=== PATIENT | male | born 1965 | race Caucasian/White ===

== ENCOUNTER 2020-10-02 20:25 | Inpatient (IN) ==
[2020-10-02 21:04] VITALS: BMI 26.2
--- NOTE | 2020-10-02 22:23 | DR.EXTPAIN ---
HPI Time seen Time Seen by Provider: 10/02/20 22:08 PCP Primary Care Physician: XANDER MADRID HPI Comment HPI Comment: A 54 y/o male presenting here admission work-up as directed by his vascular surgeon against procedure in the morning. He had sustained a Rt. calcaneal fracture on 06/09/2020. This is non-healing with subsequent development of an ulcer. He is a diabetic and had lower extremity angiogram done today. He states that he was called and informed this evening of a clot and the surgeon asked him to come for admission and he would take the clot out tomorrow. Complaint/Symptoms Chief Complaint:: "DR. TABOR SENT ME HERE FOR SURGERY IN THE MORNING WITH DR. BRENNAN." Self Treatment fo Chief Complaint: ANTIBIOTICS- UNSURE OF NAME. COVID-19 Coronavirus risk:travel/contact w/high risk person: No Has patient experienced Coronavirus symptoms: No Nurses notes reviewed Nurses Notes Review: Yes Source History Provided: Patient Mode of arrival Mode of Arrival: Ambulatory Timing Onset of Chief Complaint: 06/01/20 Associated signs and symptoms Associated Signs and Symptoms: Swelling (Rt. foot) PMH PMH Past Medical History: Yes Past Medical History: COPD, Coronary Artery Disease, Diabetes, Dyslipidemia, Gout, Hypertension and [place] Past Surgical History: Yes Past Surgical History Comment: OPEN HEART SURGERY, PACEMAKER AND DEFIB, SEVERAL STENTS, 3 BYPASSES. Family History History of Family Medical Conditions: Yes Family Medical History: Diabetes Mellitus, Cancer and Hypertension Social History Have you used tobacco products in the last 12 months: Yes Type of Tobacco Use: Cigarettes Does any household member use tobacco: Yes Alcohol Use: None Do you use any recreational Drugs:: No Lives With: Alone Lives Where: Home Travel Risk Coronavirus risk:travel/contact w/high risk person: No Has patient experienced Coronavirus symptoms: No Infectious screening Have you traveled outside the country in the last 6 months?: No Isolation: Standard ROS Review of Systems Constitutional: No Symptoms Reported Eyes: No Symptoms Reported ENTM: No Symptoms Reported Respiratoy: No Symptoms Reported Cardiovascular: No Symptoms Reported Gastrointestinal/Abdominal: No Symptoms Reported Neurological: No Symptoms Reported Musculoskeletal: Foot (Rt. foot pain) Integumentary: Other (Ulcer of Rt. heel) Hematologic/Lymphatic: No Symptoms Reported Endocrine: [place] Psychiatric: No Symptoms Reported PE Vital Signs Vitals: Temperature 98.2 F Pulse Rate 75 Respiratory Rate 20 Blood Pressure 141/61 O2 Sat by Pulse Oximetry 95 General Limitations: No Limitations General Appearance: Alert and In No Apparent Distress Head Head Exam: Normal Inspection, Atraumatic and Normocephalic Eyes Eye exam: Normal Appearance and EOMI ENT ENT Exam: Normal Exam, Normal Oropharynx, Normal External Ear Exam and Mucous Membranes Moist Neck Neck Exam: Normal Inspection and Full ROM Chest Chest Inspection: Normal Inspection and Symmetric Chest Wall Rise Respiratory Respiratory Exam: Normal Lung Sounds Bilat Cardiovascular Cardiovascular Exam: Regular Rate, Normal Rhythm, Normal Heart Sounds, +S1 and +S2 Abdominal Exam Abdominal Exam: Normal Inspection, Normal Bowel Sounds and Soft Lower Extremities Knee Exam: Normal Inspection and Full ROM Lower Leg Exam: Normal Inspection and Full ROM; negative Tenderness, Swelling, Abrasion, Laceration, Deformity, Ecchymosis, Crepitus, Dislocation, Erythema, Palpable Cord, Homans' Sign and Achilles Tendon Intact Ankle Exam: Normal Inspection and Full ROM; negative Tenderness, Swelling, Abrasion, Laceration, Ecchymosis, Deformity, Crepitus, Dislocation, Erythema, Tenderness over talofibular lig and Anterior Draw Sign Foot/Toe Exam: Swelling (Rt. foot) and Other (Ulcer to medial aspect of Rt. heel) Gait Exam: Other (ambulating with a pair of cane) Back Back Exam: Normal Inspection and Full ROM Neurological Neurological Exam: Alert and Oriented X3 Psychiatric Psychiatric Exam: Normal Mood Skin Skin Exam: Dry and Normal Color COURSE Reevaluation 1st: Unchanged Consultation Consultation Comments: I was able to speak with Dr. Brennan at about 2325 hrs. [facility]. He said that he didn't instruct the pt. to come to the ED or with plans to take him to the OR tomorrow. He said he had spoken with providers at [facility] about the angiogram report and that he would be happy to see the pt. He had tried to contact the patient unsuccessfully since earlier in the day. Anyway, Dr. Brennan asked me to admit the pt. to his service and that he would come in [facility] to see the pt. Education/Counseling Education/Counseling: Patient, Education and Counseling Educated On: Treatment, Diagnosis, Prognosis and Needs for Follow Up ROR Labs Reviewed Laboratory Results Reviewed?: Yes Result Diagrams: 10/02/20 22:25 10/02/20 22:25 Laboratory: WBC 13.3 X10^3/uL (3.6-10.0) H 10/02/20 22:25 RBC 5.51 X10^6/uL (4.7-6.0) 10/02/20 22:25 Hgb 16.4 g/dL (13.5-18.0) 10/02/20 22: Hct 48.5 % (42.0-54.0) 10/02/20 22: MCV 87.9 fL (80.0-100.0) 10/02/20 22: MCH 29.7 pg (27.0-34.0) 10/02/20 22: MCHC 33.8 g/dL (33.0-35.0) 10/02/20 22: RDW 15.1 % (11.6-16.5) 10/02/20: Plt Count 323 X10^3/uL (150.0-450.0) 10/02/20: MPV 8.2 fL (7.4-11.0) 10/02/20 22:25 Neut % (Auto) 65.3 % (42.0-75.0) 10/02/20 22: Lymph % (Auto) 23.2 % (21.0-51.0) 10/02/20 22: [place] % (Auto) 8.9 % (0.0-13.0) 10/02/20 22: Eos % (Auto) 1.8 % (0.9-2.9) 10/02/20: Baso % (Auto) 0.8 % (0.2-1.0) 10/02/20 22: Neut # (Auto) 8.7 x10^3/uL (2.2-4.8) H 10/02/20 22:25 Lymph # (Auto) 3.1 X10^3/uL (1.3-2.9) H 10/02/20 22:25 [place] # (Auto) 1.2 x10^3/uL (0.3-0.8) H 10/02/20 22:25 Eos # (Auto) 0.2 x10^3/uL (0.0-0.2) 10/02/20 22:25 Baso # (Auto) 0.1 X10^3/uL (0.0-0.1) 10/02/20 22:25 Absolute Nucleated RBC 0.2 /100WBC 10/02/20 22:25 Sodium 139 mmol/L (136-145) 10/02/20 22:25 Corrected Sodium 141 mmol/L (136-145) 10/02/20 22:25 Potassium 4.3 mmol/L (3.5-5.1) 10/02/20 22:25 Chloride 99 mmol/L (98-107) 10/02/20 22:25 Carbon Dioxide 29.9 mmol/L (21-32) 10/02/20 22:25 BUN 13 mg/dL (7-18) 10/02/20 22:25 Creatinine 1.11 mg/dL (0.70-1.30) 10/02/20 22:25 Est GFR (MDRD) Af Amer > 60 (>60) 10/02/20 22:25 Est GFR (MDRD) Non-Af > 60 (>60) 10/02/20 22:25 Glucose 176 mg/dL (65-99) H 10/02/20 22:25 Calcium 9.2 mg/dL (8.5-10.1) 10/02/20 22:25 Corrected Calcium TNP 10/02/20 22:25 Total Bilirubin 0.30 mg/dL (0.2-1.0) 10/02/20 22:25 AST 18 Units/L (15-37) 10/02/20 22:25 ALT 35 Units/L (12-78) 10/02/20 22:25 Alkaline Phosphatase 141 Units/L (46-116) H 10/02/20 22:25 Total Protein 7.5 g/dL (6.4-8.2) 10/02/20 22:25 Albumin 3.9 g/dL (3.4-5.0) 10/02/20 22:25 Globulin 3.6 g/dL (2.5-4.5) 10/02/20 22:25 Albumin/Globulin Ratio 1.1 Ratio (1.1-2.1) 10/02/20 22:25 SARS CoV-2 RNA Rapid NATALIE Negative (NEGATIVE) 10/02/20 22:19 XRAY XRAY Interpreted by: Self X-ray Results: CXR: No cardiomegaly. sternostomy wires noted, as well as a pacer below the Lt. distal clavicle with single lead into the RV. EKG Rate: 62 [place]: Normal Rhythm: NSR Block: None Hypertrophy: None ST: Normal Opioid Opioid Risk Tool Age (Scott box if 16-45): No Total: 0 Total Score Risk Category: Low Risk Copyright: [facility] predicting aberrant behaviors Diagnosis Discharge Problem: Superficial femoral artery occlusion Foot ulcer, right Qualifiers: Non-pressure ulcer stage: with fat layer exposed Qualified Code(s): L97.512 - Non-pressure chronic ulcer of other part of right foot with fat layer exposed Uncontrolled diabetes mellitus Qualifiers: Diabetes mellitus type: type 2 Glycemic state: with hyperglycemia Qualified Code(s): E11.65 - Type 2 diabetes mellitus with hyperglycemia CAD (coronary artery disease) Qualifiers: Coronary Disease-Associated Artery/Lesion type: [place] artery [place] vs. transplanted heart: [place] heart Associated angina: without angina Qualified Code(s): I25.10 - Atherosclerotic heart disease of [place] coronary artery without angina pectoris Calcaneus fracture, right Qualifiers: Encounter type: initial encounter Calcaneus location: unspecified portion of calcaneus Fracture type: closed Fracture alignment: nondisplaced Qualified Code(s): S92.001A - Unspecified fracture of right calcaneus, initial encounter for closed fracture
[2020-10-02 22:39] LABS: BASOPHILS # (AUTO) 0.1 X10^3/uL (0.0-0.1); BASOPHILS % (AUTO) 0.8 % (0.2-1.0); EOSINOPHILS # (AUTO) 0.2 x10^3/uL (0.0-0.2); EOSINOPHILS % (AUTO) 1.8 % (0.9-2.9); HEMATOCRIT 48.5 % (42.0-54.0); HEMOGLOBIN 16.4 g/dL (13.5-18.0); LYMPHOCYTES # (AUTO) 3.1 X10^3/uL (1.3-2.9); LYMPHOCYTES % (AUTO) 23.2 % (21.0-51.0); MEAN CORPUSCULAR HEMOGLOBIN 29.7 pg (27.0-34.0); MEAN CORPUSCULAR HGB CONC 33.8 g/dL (33.0-35.0); MEAN CORPUSCULAR VOLUME 87.9 fL (80.0-100.0); MEAN PLATELET VOLUME 8.2 fL (7.4-11.0); MONOCYTES # (AUTO) 1.2 x10^3/uL (0.3-0.8); MONOCYTES % (AUTO) 8.9 % (0.0-13.0); NEUTROPHILS # (AUTO) 8.7 x10^3/uL (2.2-4.8); NEUTROPHILS % (AUTO) 65.3 % (42.0-75.0); PLATELET COUNT 323 X10^3/uL (150.0-450.0); RED BLOOD COUNT 5.51 X10^6/uL (4.7-6.0); RED CELL DISTRIBUTION WIDTH 15.1 % (11.6-16.5); WHITE BLOOD COUNT 13.3 X10^3/uL (3.6-10.0)
[2020-10-02 22:45] LABS: ALANINE AMINOTRANSFERASE 35 Units/L (12-78); ALBUMIN 3.9 g/dL (3.4-5.0); ALKALINE PHOSPHATASE 141 Units/L (46-116); ASPARTATE AMINO TRANSFERASE 18 Units/L (15-37); BLOOD UREA NITROGEN 13 mg/dL (7-18); CALCIUM 9.2 mg/dL (8.5-10.1); CARBON DIOXIDE 29.9 mmol/L (21-32); CHLORIDE 99 mmol/L (98-107); COR NA(FOR HYPERGLY) 141 mmol/L (136-145); CREATININE 1.11 mg/dL (0.70-1.30); SODIUM 139 mmol/L (136-145); TOTAL PROTEIN 7.5 g/dL (6.4-8.2); eGFR NON BLACK RACES > 60 (>60)
[2020-10-02] MEDS ORDERED: NORCO 10/325 TAB PO ONE (23:19)
[2020-10-02] MEDS ORDERED: ZOSYN VIAL 3.375 GRAMS 3.375 G in NS 100 ML IV + SPIKE MINIBAG* 100 ML IV ONE (23:37)
[2020-10-02] MEDS ORDERED: ZOSYN VIAL 3.375 GRAMS IV ONE (23:44)
[2020-10-02] MEDS ORDERED: NS 1000 ML 1,000 ML ONE (23:44)
[2020-10-02] MEDS ORDERED: NORCO 10/325 TAB ONE (23:44)
[2020-10-02] MEDS ORDERED: NS 100 ML IV + SPIKE MINIBAG* 100 ML IV ONE (23:45)
[2020-10-02] MEDS: NS 1000 ML 1,000 ML IV SCH (23:54)
--- NOTE | 2020-10-02 23:54 | RAD ---
HISTORYPT WAS SENT TO THE ER FOR A PREOP CXR(FOOT SX)STUDYCHEST, 1 VIEWCOMPARISONNone availableTECHNIQUEChest radiographic imaging, frontal projection, 1 imageFINDINGSMild cardiomegaly.Implanted ICD device in place.Status post median sternotomy.No focal airspace disease.No pleural effusion.No pneumothorax.No acute osseous abnormality.IMPRESSIONNo imaging findings of acute cardiopulmonary disease.Electronically signed by: Xavi Velez (Oct 02, 2020 23:45:36)
[2020-10-03] MEDS ORDERED: ZOFRAN INJ 4 MG VIAL IVP PRN (00:47)
[2020-10-03] MEDS ORDERED: SANTYL ONE (00:49)
--- NOTE | 2020-10-03 01:00 | DR.H&P ---
H&P History & Physical for Day of: H&P Date: 10/03/20 Chief Complaint Chief Complaint: Non healing wound to the medial right ankle/ calcaneus. Allergies Allergies Allergy/AdvReac Type Severity Reaction Status Date / Time No Known Drug Allergies Allergy Verified 10/02/20 22:22 History of Present Illness History of Present Illness: This 54-year-old male was evaluated by his hardware technician earlier this week. He has a nonhealing wound to the medial aspect of the right ankle over the calcaneus with a known calcaneal fracture. This occurred from trauma. Recently had CT angiogram showing complete occlusion of the distal right superficial femoral artery/popliteal artery with good run off. He was to call me back today so we can decide how best to treat this but has shown up in the emergency room with this open wound with significant exudates and questionable infection. He also has a history of coronary artery disease with Hx of CABG, many coronary stents placed and has a pacemaker defibrillator in place. He will be admitted for cardiac clearance for intervention of the right leg and IV antibiotics. Past Medical History Past Medical History: COPD (> 80 packyear smoker), Coronary Artery Disease (Hx of CABG 17 years ago, multiple coronary stents, has pacemaker/defibrillator), Diabetes, Dyslipidemia, Gout, Hypertension and [place] Past Surgical History Surgical History: Angioplasty/Stents (Multiple coronary stents) and CABG/Valve Surgery (Hx of CABG 17years ago) Family History Family Medical History: Diabetes Mellitus, Cancer and Hypertension Social History Does patient currently use any type of tobacco product: Yes (> 80 pack year smoker ) Have you used tobacco products in the last 12 months: Yes Type of Tobacco Use: Cigarettes Does any household member use tobacco: Yes Alcohol Use: None Prescription drug monitoring program results: PDMP was not reviewed Medications Home Medications: No Known Drug Allergies Allergy (Verified 10/02/20 22:22) CONTINUE taking the following medications amlodipine 10 mg PO DAILY 10/02/20 [History] atorvastatin 80 mg PO DAILY 10/02/20 [History] ciprofloxacin HCl 500 mg PO BID 10/02/20 [History] clopidogrel 75 mg PO DAILY 10/02/20 [History] collagenase clostridium histo. [Santyl] 1 applic TOPICAL DAILY 10/02/20 [History] ezetimibe 10 mg PO DAILY 10/02/20 [History] vvyoadsicab-hmbjtwdnc-xssijfvl [Trelegy Ellipta] 1 inh INHALATION DAILY 10/02/20 [History] gabapentin 300 mg PO BID 10/02/20 [History] lisinopril 40 mg PO DAILY 10/02/20 [History] metformin 1,000 mg PO QHS 10/02/20 [History] metformin 500 mg PO QAM 10/02/20 [History] metoprolol succinate 100 mg PO DAILY 10/02/20 [History] semaglutide [Rybelsus] 7 mg PO DAILY 10/02/20 [History] Labs Result Diagrams: 10/02/20 22:25 10/02/20 22:25 Labs: 10/03/20 00:09 Foot - Right Wound Gram Stain - Final Laboratory WBC 13.3 X10^3/uL (3.6-10.0) H 10/02/20 22:25 RBC 5.51 X10^6/uL (4.7-6.0) 10/02/20 22:25 Hgb 16.4 g/dL (13.5-18.0) 10/02/20 22:25 Hct 48.5 % (42.0-54.0) 10/02/20 22:25 MCV 87.9 fL (80.0-100.0) 10/02/20 22:25 MCH 29.7 pg (27.0-34.0) 10/02/20 22:25 MCHC 33.8 g/dL (33.0-35.0) 10/02/20 22:25 RDW 15.1 % (11.6-16.5) 10/02/20 22:25 Plt Count 323 X10^3/uL (150.0-450.0) 10/02/20 22:25 MPV 8.2 fL (7.4-11.0) 10/02/20 22:25 Neut % (Auto) 65.3 % (42.0-75.0) 10/02/20 22:25 Lymph % (Auto) 23.2 % (21.0-51.0) 10/02/20 22:25 [place] % (Auto) 8.9 % (0.0-13.0) 10/02/20 22:25 Eos % (Auto) 1.8 % (0.9-2.9) 10/02/20 22:25 Baso % (Auto) 0.8 % (0.2-1.0) 10/02/20 22:25 Neut # (Auto) 8.7 x10^3/uL (2.2-4.8) H 10/02/20 22:25 Lymph # (Auto) 3.1 X10^3/uL (1.3-2.9) H 10/02/20 22:25 [place] # (Auto) 1.2 x10^3/uL (0.3-0.8) H 10/02/20 22:25 Eos # (Auto) 0.2 x10^3/uL (0.0-0.2) 10/02/20 22:25 Baso # (Auto) 0.1 X10^3/uL (0.0-0.1) 10/02/20 22:25 Absolute Nucleated RBC 0.2 /100WBC 10/02/20 22:25 Sodium 139 mmol/L (136-145) 10/02/20 22:25 Corrected Sodium 141 mmol/L (136-145) 10/02/20 22:25 Potassium 4.3 mmol/L (3.5-5.1) 10/02/20 22:25 Chloride 99 mmol/L (98-107) 10/02/20 22:25 Carbon Dioxide 29.9 mmol/L (21-32) 10/02/20 22:25 BUN 13 mg/dL (7-18) 10/02/20 22:25 Creatinine 1.11 mg/dL (0.70-1.30) 10/02/20 22:25 Est GFR (MDRD) Af Amer > 60 (>60) 10/02/20 22:25 Est GFR (MDRD) Non-Af > 60 (>60) 10/02/20 22:25 Glucose 176 mg/dL (65-99) H 10/02/20 22:25 Calcium 9.2 mg/dL (8.5-10.1) 10/02/20 22:25 Corrected Calcium TNP 10/02/20 22:25 Total Bilirubin 0.30 mg/dL (0.2-1.0) 10/02/20 22:25 AST 18 Units/L (15-37) 10/02/20 22:25 ALT 35 Units/L (12-78) 10/02/20 22:25 Alkaline Phosphatase 141 Units/L (46-116) H 10/02/20 22:25 Total Protein 7.5 g/dL (6.4-8.2) 10/02/20 22:25 Albumin 3.9 g/dL (3.4-5.0) 10/02/20 22:25 Globulin 3.6 g/dL (2.5-4.5) 10/02/20 22:25 Albumin/Globulin Ratio 1.1 Ratio (1.1-2.1) 10/02/20 22:25 SARS CoV-2 RNA Rapid NATALIE Negative (NEGATIVE) 10/02/20 22:19 Review of Systems Constitutional: denies No Symptoms Reported, See HPI, Fever, Chills, Sweats, Weakness, Malaise and Other Eyes: No Symptoms Reported ENT: No Symptoms Reported Respiratory: No Symptoms Reported and SOB with Excertion Gastrointestinal: No Symptoms Reported Genitourinary: No Symptoms Reported Musculoskeletal: Other (Wound medial right ankle 6x4x1.5 cm) Neurological: No Symptoms Reported Physical Exam Vital Signs: Temperature 98.2 F Pulse Rate [Right Brachial] 60 Pulse Rate 75 Respiratory Rate 20 Blood Pressure [Right Arm] 133/64 Blood Pressure 141/61 O2 Sat by Pulse Oximetry 95 Oriented: Normal, Time, Person and Place Eyes: Normal Ear: Normal Nose: Normal Throat: Normal Respiratory: Diminished Throughout Cardiovascular: Normal and Other (Femoral pulses have bilaterally. Absent pulses right ankle. Palpable pulses left ankle.) : Normal Auscultation: Bowel Sounds: Normal Palpation: Normal Tenderness: Normal Skin: Wound (as described above) Musculoskeletal: Normal ( with exception of right medial ankle wound) Psychiatric: Anxiety Affect: Anxious Speech Pattern: Clear Assessment/Plan (1) Superficial femoral artery occlusion: Status: Acute Plan: Plan to admit antibiotics and will need cardiac evaluation prior to peripheral vascular intervention of the right leg (2) Foot ulcer, right: Qualifiers: Non-pressure ulcer stage: with fat layer exposed Qualified Code(s): L97.512 - Non-pressure chronic ulcer of other part of right foot with fat layer exposed Status: Acute Plan: as above . Will apply Santyl to the wound daily. (3) Uncontrolled diabetes mellitus: Qualifiers: Diabetes mellitus type: type 2 Glycemic state: with hyperglycemia Qualified Code(s): E11.65 - Type 2 diabetes mellitus with hyperglycemia Status: Acute Plan: Sliding scale insulin (4) CAD (coronary artery disease): Qualifiers: Associated angina: without angina Coronary Disease-Associated Artery/Lesion type: [place] artery [place] vs. transplanted heart: [place] heart Qualified Code(s): I25.10 - Atherosclerotic heart disease of [place] coronary artery without angina pectoris Status: Acute Plan: Will need cardiac evaluation (5) Calcaneus fracture, right: Qualifiers: Calcaneus location: unspecified portion of calcaneus Encounter type: initial encounter Fracture alignment: nondisplaced Fracture type: closed Qualified Code(s): S92.001A - Unspecified fracture of right calcaneus, initial encounter for closed fracture Status: Acute (6) Pacemaker: Status: Acute Review H&P Reviewed: Yes Patient was examined?: Yes
[2020-10-03] MEDS: GLUCOPHAGE XR 24-HR PO SCH ×3 (01:25→20:42)
[2020-10-03] MEDS: ZOSYN VIAL 3.375 GRAMS 3.375 G in NS 100 ML IV + SPIKE MINIBAG* 100 ML IV SCH ×4 (02:08→21:01)
[2020-10-03 05:06] LABS: BASOPHILS # (AUTO) 0.1 X10^3/uL (0.0-0.1); BASOPHILS % (AUTO) 0.7 % (0.2-1.0); EOSINOPHILS # (AUTO) 0.2 x10^3/uL (0.0-0.2); EOSINOPHILS % (AUTO) 1.8 % (0.9-2.9); HEMOGLOBIN 14.8 g/dL (13.5-18.0); LYMPHOCYTES # (AUTO) 3.1 X10^3/uL (1.3-2.9); LYMPHOCYTES % (AUTO) 30.1 % (21.0-51.0); MEAN CORPUSCULAR HEMOGLOBIN 29.9 pg (27.0-34.0); MEAN CORPUSCULAR HGB CONC 34.5 g/dL (33.0-35.0); MEAN CORPUSCULAR VOLUME 86.6 fL (80.0-100.0); MEAN PLATELET VOLUME 8.4 fL (7.4-11.0); NEUTROPHILS # (AUTO) 5.9 x10^3/uL (2.2-4.8); NEUTROPHILS % (AUTO) 57.4 % (42.0-75.0); PLATELET COUNT 270 X10^3/uL (150.0-450.0); RED BLOOD COUNT 4.96 X10^6/uL (4.7-6.0); RED CELL DISTRIBUTION WIDTH 15.2 % (11.6-16.5); WHITE BLOOD COUNT 10.3 X10^3/uL (3.6-10.0)
[2020-10-03 05:18] LABS: ALANINE AMINOTRANSFERASE 30 Units/L (12-78); ALBUMIN 3.4 g/dL (3.4-5.0); ALKALINE PHOSPHATASE 119 Units/L (46-116); ASPARTATE AMINO TRANSFERASE 15 Units/L (15-37); BLOOD UREA NITROGEN 13 mg/dL (7-18); CARBON DIOXIDE 29.8 mmol/L (21-32); CHLORIDE 102 mmol/L (98-107); COR NA(FOR HYPERGLY) 141 mmol/L (136-145); CREATININE 1.07 mg/dL (0.70-1.30); SODIUM 140 mmol/L (136-145); TOTAL PROTEIN 6.4 g/dL (6.4-8.2); eGFR NON BLACK RACES > 60 (>60)
[2020-10-03] MEDS: HumuLIN R SUBCUT PRN (06:08)
[2020-10-03] MEDS: NS 1000 ML 1,000 ML IV SCH ×2 (07:00→17:30)
[2020-10-03] MEDS: NORCO 5/325 MG TAB PO PRN ×3 (07:12→20:43)
[2020-10-03] MEDS: PULMICORT NEB TX 0.5 MG NEB SCH ×2 (08:10→21:11)
[2020-10-03] MEDS: DUONEB 0.5 MG/3 MG (3 mL) NEB SCH ×2 (08:10→21:11)
[2020-10-03] MEDS ORDERED: PATIENT'S HOME MEDICATION (Fluticasone-Umeclidin-Vilanter [Trelegy Ellipta] 100-62.5-25 mc IN SCH (09:00)
[2020-10-03] MEDS ORDERED: TOPROL XL PO ONE (09:57)
[2020-10-03] MEDS: LOVENOX INJ 40 MG SYR SC SCH (10:08)
[2020-10-03] MEDS: TOPROL XL PO SCH (10:08)
[2020-10-03] MEDS: NEURONTIN CAP 300 MG PO SCH ×2 (10:08→21:00)
[2020-10-03] MEDS: PLAVIX PO SCH (10:08)
[2020-10-03] MEDS: NORVASC TAB 10 MG PO SCH (10:08)
[2020-10-03] MEDS: LIPITOR TAB 80 MG PO SCH (10:09)
[2020-10-03] MEDS: ZETIA TAB 10 MG PO SCH (10:09)
[2020-10-03] MEDS: SANTYL TOP SCH (10:09)
[2020-10-03] MEDS: ZESTRIL TAB 40 MG PO SCH (10:11)
--- NOTE | 2020-10-03 13:24 | NOTE.SOAP ---
Soap Note Note for Day of Date of Exam: 10/03/20 Subjective Data Subjective Data: Patient with non healing wound and limb threatening ischemia right LE with complete total occlusion of the right superficial femoral artery with 3 vessel runoff. Significant heart history with CABG X3 WITH MULTIPLE CORONARY STENTS, AND PACEMAKER defibrillator . 2 pack/ day smoker, > 80 pack years and diabetic Objective Data Temperature: 97.8 F Pulse Rate: 64 Respiratory Rate: 18 Blood Pressure: 134/80 O2 Sat by Pulse Oximetry: 93 Objective Data: 5x4x15 cm wound right medial ankle with significant exudate Assessment Assessment: Limb threatening ischemia right LE with non healing wound Plan Plan: Will need to continue IV antibiotics and will need cardiology consult in preparation for intervention of complete occlusion right SFA
[2020-10-03] MEDS: SNACK - Diabetic Appropriate PO SCH (20:07)
--- NOTE | 2020-10-03 23:53 | NOTE.SOAP ---
Soap Note Note for Day of Date of Exam: 10/03/20 Subjective Data Subjective Data: See previous note. Patient had stress echo cardiocardiogram today but result in the. He has failed to separate rounds of antibiotics and has had no progress in healing of the right ankle wound. Objective Data Temperature: 56 F O2 Sat by Pulse Oximetry: 92 Assessment Assessment: Nonhealing wound right ankle despite 2 rounds of antibiotics. Limb threatening ischemia right lower extremity. Plan Plan: Continue IV antibiotics. Await final results of stress echocardiogram and cardiology consult. Will plan for intervention early next week of the right lower extremity.
[2020-10-04] MEDS: NORCO 5/325 MG TAB PO PRN ×3 (02:09→16:49)
[2020-10-04] MEDS: NS 1000 ML 1,000 ML IV SCH ×4 (02:09→20:45)
[2020-10-04] MEDS: ZOSYN VIAL 3.375 GRAMS 3.375 G in NS 100 ML IV + SPIKE MINIBAG* 100 ML IV SCH ×3 (05:09→22:16)
[2020-10-04] MEDS ORDERED: TOPROL XL PO ONE (07:32)
[2020-10-04] MEDS: GLUCOPHAGE XR 24-HR PO SCH ×2 (08:02→20:46)
[2020-10-04] MEDS: LIPITOR TAB 80 MG PO SCH (08:03)
[2020-10-04] MEDS: LOVENOX INJ 40 MG SYR SC SCH (08:06)
[2020-10-04] MEDS: NICOTINE PATCH TD SCH ×2 (08:07→14:47)
[2020-10-04] MEDS: NEURONTIN CAP 300 MG PO SCH ×2 (08:07→20:46)
[2020-10-04] MEDS: PLAVIX PO SCH (08:08)
[2020-10-04] MEDS: NORVASC TAB 10 MG PO SCH (08:08)
[2020-10-04] MEDS: SANTYL TOP SCH (08:09)
[2020-10-04] MEDS: ZETIA TAB 10 MG PO SCH (08:11)
[2020-10-04] MEDS: ZESTRIL TAB 40 MG PO SCH (08:11)
[2020-10-04] MEDS: TOPROL XL PO SCH (08:11)
[2020-10-04] MEDS: PULMICORT NEB TX 0.5 MG NEB SCH ×2 (08:29→20:30)
[2020-10-04] MEDS: DUONEB 0.5 MG/3 MG (3 mL) NEB SCH ×2 (08:29→20:30)
--- NOTE | 2020-10-04 15:34 | DR.PROGNOT ---
Hospital Progress Notes - Progress Note for Day of: Progress Note Date: 10/04/20 - Chief Complaint Chief Complaint: c/o pain Rt foot . being treated for infected ulcer Rt ankle and possible surgery next week . - Past Medical Family Social History Past Med/Fam/Surg Hx: No changes since H&P Allergies: Allergies No Known Drug Allergies Allergy (Verified 10/02/20 22:22) - Review Of Systems ROS: No change since H&P - Vital Signs Vital Signs: Temperature 97.9 F Pulse Rate [Right Brachial] 66 Pulse Rate 76 Respiratory Rate 20 Blood Pressure [Right Arm] 138/62 Blood Pressure 134/80 O2 Sat by Pulse Oximetry 96 - Physical Exam Oriented: Normal, Time, Person, Place Eyes: Normal Ear: Normal Nose: Normal Throat: Normal Cardiovascular: Normal, Other (Femoral pulses have bilaterally. Absent pulses right ankle. Palpable pulses left ankle.) : Normal GI:Auscultation: Normal GI:Palpation: Normal GI: Tenderness: Normal Skin: Wound (infected ulcer Rt ankle ) Musculoskeletal: Normal (with exception of right medial ankle wound) Psychiatric: Anxiety Affect: Anxious Speech Pattern: Clear, Appropriate - Laboratory and Diagnostics Result Diagrams: 10/03/20 04:03 10/03/20 04:03 Labs: 10/03/20 00:09 Foot - Right Wound Gram Stain - Final 10/03/20 00:09 Foot - Right Wound Culture - Preliminary Laboratory WBC 10.3 X10^3/uL (3.6-10.0) H 10/03/20 04:03 RBC 4.96 X10^6/uL (4.7-6.0) 10/03/20 04:03 Hgb 14.8 g/dL (13.5-18.0) 10/03/20 04:03 Hct 43.0 % (42.0-54.0) 10/03/20 04:03 MCV 86.6 fL (80.0-100.0) 10/03/20 04:03 MCH 29.9 pg (27.0-34.0) 10/03/20 04:03 MCHC 34.5 g/dL (33.0-35.0) 10/03/20 04:03 RDW 15.2 % (11.6-16.5) 10/03/20 04:03 Plt Count 270 X10^3/uL (150.0-450.0) 10/03/20 04:03 MPV 8.4 fL (7.4-11.0) 10/03/20 04:03 Neut % (Auto) 57.4 % (42.0-75.0) 10/03/20 04:03 Lymph % (Auto) 30.1 % (21.0-51.0) 10/03/20 04:03 [place] % (Auto) 10.0 % (0.0-13.0) 10/03/20 04:03 Eos % (Auto) 1.8 % (0.9-2.9) 10/03/20 04:03 Baso % (Auto) 0.7 % (0.2-1.0) 10/03/20 04:03 Neut # (Auto) 5.9 x10^3/uL (2.2-4.8) H 10/03/20 04:03 Lymph # (Auto) 3.1 X10^3/uL (1.3-2.9) H 10/03/20 04:03 [place] # (Auto) 1.0 x10^3/uL (0.3-0.8) H 10/03/20 04:03 Eos # (Auto) 0.2 x10^3/uL (0.0-0.2) 10/03/20 04:03 Baso # (Auto) 0.1 X10^3/uL (0.0-0.1) 10/03/20 04:03 Absolute Nucleated RBC 0.0 /100WBC 10/03/20 04:03 Sodium 140 mmol/L (136-145) 10/03/20 04:03 Corrected Sodium 141 mmol/L (136-145) 10/03/20 04:03 Potassium 4.3 mmol/L (3.5-5.1) 10/03/20 04:03 Chloride 102 mmol/L (98-107) 10/03/20 04:03 Carbon Dioxide 29.8 mmol/L (21-32) 10/03/20 04:03 BUN 13 mg/dL (7-18) 10/03/20 04:03 Creatinine 1.07 mg/dL (0.70-1.30) 10/03/20 04:03 Est GFR (MDRD) Af Amer > 60 (>60) 10/03/20 04:03 Est GFR (MDRD) Non-Af > 60 (>60) 10/03/20 04:03 Glucose 155 mg/dL (65-99) H 10/03/20 04:03 POC Glucose (mg/dL) 175 mg/dL (65-99) H 10/04/20 11:30 Calcium 9.0 mg/dL (8.5-10.1) 10/03/20 04:03 Corrected Calcium TNP 10/03/20 04:03 Total Bilirubin 0.20 mg/dL (0.2-1.0) 10/03/20 04:03 AST 15 Units/L (15-37) 10/03/20 04:03 ALT 30 Units/L (12-78) 10/03/20 04:03 Alkaline Phosphatase 119 Units/L (46-116) H 10/03/20 04:03 Total Protein 6.4 g/dL (6.4-8.2) 10/03/20 04:03 Albumin 3.4 g/dL (3.4-5.0) 10/03/20 04:03 Globulin 3.0 g/dL (2.5-4.5) 10/03/20 04:03 Albumin/Globulin Ratio 1.1 Ratio (1.1-2.1) 10/03/20 04:03 SARS CoV-2 RNA Rapid NATALIE Negative (NEGATIVE) 10/02/20 22:19 - Assessment and Plan 1: infected ulcer Rt foot . PVD . heavy smoker . same IV ATB and surgery next week as per Dr Koch - Problem Patient Problems: Patient Problems Superficial femoral artery occlusion (Acute) I70.209 Foot ulcer, right (Acute) L97.519 Uncontrolled diabetes mellitus (Acute) E11.65 CAD (coronary artery disease) (Acute) I25.10 Calcaneus fracture, right (Acute) S92.001A
[2020-10-04] MEDS: SNACK - Diabetic Appropriate PO SCH (20:46)
[2020-10-04] MEDS: HumuLIN R SUBCUT PRN (22:16)
[2020-10-05] MEDS: NORCO 5/325 MG TAB PO PRN ×4 (00:01→23:16)
[2020-10-05] MEDS: NS 1000 ML 1,000 ML IV SCH ×5 (03:18→23:16)
[2020-10-05 05:28] LABS: BASOPHILS # (AUTO) 0.1 X10^3/uL (0.0-0.1); BASOPHILS % (AUTO) 0.8 % (0.2-1.0); EOSINOPHILS # (AUTO) 0.2 x10^3/uL (0.0-0.2); EOSINOPHILS % (AUTO) 1.6 % (0.9-2.9); HEMATOCRIT 41.1 % (42.0-54.0); HEMOGLOBIN 14.3 g/dL (13.5-18.0); LYMPHOCYTES # (AUTO) 2.4 X10^3/uL (1.3-2.9); LYMPHOCYTES % (AUTO) 24.1 % (21.0-51.0); MEAN CORPUSCULAR HEMOGLOBIN 30.2 pg (27.0-34.0); MEAN CORPUSCULAR HGB CONC 34.8 g/dL (33.0-35.0); MEAN PLATELET VOLUME 8.5 fL (7.4-11.0); MONOCYTES % (AUTO) 9.7 % (0.0-13.0); NEUTROPHILS # (AUTO) 6.5 x10^3/uL (2.2-4.8); NEUTROPHILS % (AUTO) 63.8 % (42.0-75.0); PLATELET COUNT 233 X10^3/uL (150.0-450.0); RED BLOOD COUNT 4.72 X10^6/uL (4.7-6.0); WHITE BLOOD COUNT 10.1 X10^3/uL (3.6-10.0)
[2020-10-05 05:50] LABS: BLOOD UREA NITROGEN 5 mg/dL (7-18); CHLORIDE 105 mmol/L (98-107); CREATININE 1.07 mg/dL (0.70-1.30); SODIUM 141 mmol/L (136-145); eGFR NON BLACK RACES > 60 (>60)
[2020-10-05 05:51] LABS: ALANINE AMINOTRANSFERASE 23 Units/L (12-78); ALBUMIN 3.1 g/dL (3.4-5.0); ALKALINE PHOSPHATASE 112 Units/L (46-116); ASPARTATE AMINO TRANSFERASE 19 Units/L (15-37); CALCIUM 8.2 mg/dL (8.5-10.1); COR CA(FOR HYPOALB) 8.9 mg/dL (8.5-10.1); COR NA(FOR HYPERGLY) 141 mmol/L (136-145); TOTAL PROTEIN 6.1 g/dL (6.4-8.2)
[2020-10-05] MEDS: ZOSYN VIAL 3.375 GRAMS 3.375 G in NS 100 ML IV + SPIKE MINIBAG* 100 ML IV SCH ×3 (05:55→21:02)
[2020-10-05] MEDS ORDERED: TOPROL XL PO ONE (08:10)
[2020-10-05] MEDS: GLUCOPHAGE XR 24-HR PO SCH ×2 (08:19→20:56)
[2020-10-05] MEDS: TOPROL XL PO SCH (08:20)
[2020-10-05] MEDS: LIPITOR TAB 80 MG PO SCH (08:20)
[2020-10-05] MEDS: NEURONTIN CAP 300 MG PO SCH ×2 (08:20→20:57)
[2020-10-05] MEDS: ZETIA TAB 10 MG PO SCH (08:20)
[2020-10-05] MEDS: ZESTRIL TAB 40 MG PO SCH (08:20)
[2020-10-05] MEDS: PLAVIX PO SCH (08:20)
[2020-10-05] MEDS: NORVASC TAB 10 MG PO SCH (08:20)
[2020-10-05] MEDS: LOVENOX INJ 40 MG SYR SC SCH (08:21)
[2020-10-05] MEDS: NICOTINE PATCH TD SCH (08:21)
[2020-10-05 09:09] LABS: CREATININE 0.89 mg/dL (0.70-1.30); VANCOMYCIN,TROUGH < 2.0 ug/mL (15-20)
[2020-10-05] MEDS: DUONEB 0.5 MG/3 MG (3 mL) NEB SCH ×2 (09:27→21:05)
[2020-10-05] MEDS: PULMICORT NEB TX 0.5 MG NEB SCH ×2 (09:27→21:05)
--- NOTE | 2020-10-05 10:21 | DR.PROGNOT ---
Hospital Progress Notes - Progress Note for Day of: Progress Note Date: 10/05/20 - Chief Complaint Chief Complaint: c/o pain Rt foot . mild drainage from the RT foot ulcer . BS is fairly controlled . - Past Medical Family Social History Past Med/Fam/Surg Hx: No changes since H&P Allergies: Allergies No Known Drug Allergies Allergy (Verified 10/02/20 22:22) - Review Of Systems ROS: No change since H&P - Vital Signs Vital Signs: Temperature 98 F Pulse Rate [Right Brachial] 73 Pulse Rate 56 Respiratory Rate 18 Blood Pressure [Right Arm] 144/67 Blood Pressure 134/80 O2 Sat by Pulse Oximetry 96 - Physical Exam Oriented: Normal, Time, Person, Place Eyes: Normal Ear: Normal Nose: Normal Throat: Normal Cardiovascular: Normal, Other (Femoral pulses have bilaterally. Absent pulses right ankle. Palpable pulses left ankle.) : Normal GI:Auscultation: Normal GI:Palpation: Normal GI: Tenderness: Normal Skin: Wound (3 x 3 cm Rt foot ulcer medial heel with moderate cellulitis ) Musculoskeletal: Normal (with exception of right medial ankle wound) Psychiatric: Anxiety Affect: Anxious Speech Pattern: Clear, Appropriate - Laboratory and Diagnostics Result Diagrams: 10/05/20 04:15 10/05/20 08:43 Labs: 10/03/20 00:09 Foot - Right Wound Gram Stain - Final 10/03/20 00:09 Foot - Right Wound Culture - Preliminary Escherichia Coli Laboratory WBC 10.1 X10^3/uL (3.6-10.0) H 10/05/20 04:15 RBC 4.72 X10^6/uL (4.7-6.0) 10/05/20 04:15 Hgb 14.3 g/dL (13.5-18.0) 10/05/20 04:15 Hct 41.1 % (42.0-54.0) L 10/05/20 04:15 MCV 87.0 fL (80.0-100.0) 10/05/20 04:15 MCH 30.2 pg (27.0-34.0) 10/05/20 04:15 MCHC 34.8 g/dL (33.0-35.0) 10/05/20 04:15 RDW 15.0 % (11.6-16.5) 10/05/20 04:15 Plt Count 233 X10^3/uL (150.0-450.0) 10/05/20 04:15 MPV 8.5 fL (7.4-11.0) 10/05/20 04:15 Neut % (Auto) 63.8 % (42.0-75.0) 10/05/20 04:15 Lymph % (Auto) 24.1 % (21.0-51.0) 10/05/20 04:15 [place] % (Auto) 9.7 % (0.0-13.0) 10/05/20 04:15 Eos % (Auto) 1.6 % (0.9-2.9) 10/05/20 04:15 Baso % (Auto) 0.8 % (0.2-1.0) 10/05/20 04:15 Neut # (Auto) 6.5 x10^3/uL (2.2-4.8) H 10/05/20 04:15 Lymph # (Auto) 2.4 X10^3/uL (1.3-2.9) 10/05/20 04:15 [place] # (Auto) 1.0 x10^3/uL (0.3-0.8) H 10/05/20 04:15 Eos # (Auto) 0.2 x10^3/uL (0.0-0.2) 10/05/20 04:15 Baso # (Auto) 0.1 X10^3/uL (0.0-0.1) 10/05/20 04:15 Absolute Nucleated RBC 0.1 /100WBC 10/05/20 04:15 Sodium 141 mmol/L (136-145) 10/05/20 04:15 Corrected Sodium 141 mmol/L (136-145) 10/05/20 04:15 Potassium 4.1 mmol/L (3.5-5.1) 10/05/20 04:15 Chloride 105 mmol/L (98-107) 10/05/20 04:15 Carbon Dioxide 27.0 mmol/L (21-32) 10/05/20 04:15 BUN 5 mg/dL (7-18) L 10/05/20 04:15 Creatinine 0.89 mg/dL (0.70-1.30) 10/05/20 08:43 Est GFR (MDRD) Af Amer > 60 (>60) 10/05/20 04:15 Est GFR (MDRD) Non-Af > 60 (>60) 10/05/20 04:15 Glucose 117 mg/dL (65-99) H 10/05/20 04:15 POC Glucose (mg/dL) 251 mg/dL (65-99) H 10/04/20 20:20 Calcium 8.2 mg/dL (8.5-10.1) L 10/05/20 04:15 Corrected Calcium 8.9 mg/dL (8.5-10.1) 10/05/20 04:15 Total Bilirubin 0.30 mg/dL (0.2-1.0) 10/05/20 04:15 AST 19 Units/L (15-37) 10/05/20 04:15 ALT 23 Units/L (12-78) 10/05/20 04:15 Alkaline Phosphatase 112 Units/L (46-116) 10/05/20 04:15 Total Protein 6.1 g/dL (6.4-8.2) L 10/05/20 04:15 Albumin 3.1 g/dL (3.4-5.0) L 10/05/20 04:15 Globulin 3.0 g/dL (2.5-4.5) 10/05/20 04:15 Albumin/Globulin Ratio 1.0 Ratio (1.1-2.1) L 10/05/20 04:15 Vancomycin Trough < 2.0 ug/mL (15-20) L 10/05/20 08:43 SARS CoV-2 RNA Rapid NATALIE Negative (NEGATIVE) 10/02/20 22:19 - Assessment and Plan 1: infected ulcer Rt foot . PVD . DM. heavy smoker . same IV ATB and surgery next week as per Dr Koch - Problem Patient Problems: Patient Problems Superficial femoral artery occlusion (Acute) I70.209 Foot ulcer, right (Acute) L97.519 Uncontrolled diabetes mellitus (Acute) E11.65 CAD (coronary artery disease) (Acute) I25.10 Calcaneus fracture, right (Acute) S92.001A
[2020-10-05] MEDS: SNACK - Diabetic Appropriate PO SCH (20:56)
[2020-10-06] MEDS: ZOSYN VIAL 3.375 GRAMS 3.375 G in NS 100 ML IV + SPIKE MINIBAG* 100 ML IV SCH ×3 (05:44→21:00)
[2020-10-06] MEDS: NORCO 5/325 MG TAB PO PRN ×3 (05:45→20:08)
[2020-10-06] MEDS: NS 1000 ML 1,000 ML IV SCH ×4 (05:45→23:53)
[2020-10-06] MEDS: PULMICORT NEB TX 0.5 MG NEB SCH ×2 (09:04→20:39)
[2020-10-06] MEDS: DUONEB 0.5 MG/3 MG (3 mL) NEB SCH ×2 (09:04→20:39)
[2020-10-06] MEDS ORDERED: TOPROL XL PO ONE (09:20)
[2020-10-06] MEDS: NICOTINE PATCH TD SCH (09:27)
[2020-10-06] MEDS: NEURONTIN CAP 300 MG PO SCH ×2 (09:27→20:07)
[2020-10-06] MEDS: ZESTRIL TAB 40 MG PO SCH (09:28)
[2020-10-06] MEDS: LIPITOR TAB 80 MG PO SCH (09:28)
[2020-10-06] MEDS: GLUCOPHAGE XR 24-HR PO SCH ×2 (09:28→20:07)
[2020-10-06] MEDS: TOPROL XL PO SCH (09:28)
[2020-10-06] MEDS: NORVASC TAB 10 MG PO SCH (09:28)
[2020-10-06] MEDS: PLAVIX PO SCH (09:28)
[2020-10-06] MEDS: LOVENOX INJ 40 MG SYR SC SCH (09:29)
[2020-10-06] MEDS: ZETIA TAB 10 MG PO SCH (09:48)
[2020-10-06] MEDS: HumuLIN R SUBCUT PRN (17:33)
[2020-10-06] MEDS: SNACK - Diabetic Appropriate PO SCH (20:07)
--- NOTE | 2020-10-06 21:12 | DR.PROGNOT ---
Hospital Progress Notes - Progress Note for Day of: Progress Note Date: 10/06/20 - Chief Complaint Chief Complaint: no changes ..c/o pain Rt foot . mild drainage from the RT foot ulcer . BS is fairly controlled , 129.. WBC 10.1 .. culture Rt foot ulcer ,E Geovani - Past Medical Family Social History Past Med/Fam/Surg Hx: No changes since H&P Allergies: Allergies No Known Drug Allergies Allergy (Verified 10/02/20 22:22) - Review Of Systems ROS: No change since H&P - Vital Signs Vital Signs: Temperature 98.2 F Pulse Rate [Right Brachial] 68 Pulse Rate 66 Respiratory Rate 17 Blood Pressure [Right Arm] 147/77 Blood Pressure 134/80 O2 Sat by Pulse Oximetry 97 - Physical Exam Oriented: Normal, Time, Person, Place Eyes: Normal Ear: Normal Nose: Normal Throat: Normal Cardiovascular: Normal, Other : Normal GI:Auscultation: Normal GI:Palpation: Normal GI: Tenderness: Normal Skin: Wound (3 x 3 cm Rt foot ulcer medial heel with moderate cellulitis ) Musculoskeletal: Normal (with exception of right medial ankle wound) Psychiatric: Anxiety Affect: Anxious Speech Pattern: Clear, Appropriate - Laboratory and Diagnostics Result Diagrams: 10/05/20 04:15 10/05/20 08:43 Labs: 10/03/20 00:09 Foot - Right Wound Gram Stain - Final 10/03/20 00:09 Foot - Right Wound Culture - Preliminary Escherichia Coli Escherichia Coli#2 Laboratory WBC 10.1 X10^3/uL (3.6-10.0) H 10/05/20 04:15 RBC 4.72 X10^6/uL (4.7-6.0) 10/05/20 04:15 Hgb 14.3 g/dL (13.5-18.0) 10/05/20 04:15 Hct 41.1 % (42.0-54.0) L 10/05/20 04:15 MCV 87.0 fL (80.0-100.0) 10/05/20 04:15 MCH 30.2 pg (27.0-34.0) 10/05/20 04:15 MCHC 34.8 g/dL (33.0-35.0) 10/05/20 04:15 RDW 15.0 % (11.6-16.5) 10/05/20 04:15 Plt Count 233 X10^3/uL (150.0-450.0) 10/05/20 04:15 MPV 8.5 fL (7.4-11.0) 10/05/20 04:15 Neut % (Auto) 63.8 % (42.0-75.0) 10/05/20 04:15 Lymph % (Auto) 24.1 % (21.0-51.0) 10/05/20 04:15 [place] % (Auto) 9.7 % (0.0-13.0) 10/05/20 04:15 Eos % (Auto) 1.6 % (0.9-2.9) 10/05/20 04:15 Baso % (Auto) 0.8 % (0.2-1.0) 10/05/20 04:15 Neut # (Auto) 6.5 x10^3/uL (2.2-4.8) H 10/05/20 04:15 Lymph # (Auto) 2.4 X10^3/uL (1.3-2.9) 10/05/20 04:15 [place] # (Auto) 1.0 x10^3/uL (0.3-0.8) H 10/05/20 04:15 Eos # (Auto) 0.2 x10^3/uL (0.0-0.2) 10/05/20 04:15 Baso # (Auto) 0.1 X10^3/uL (0.0-0.1) 10/05/20 04:15 Absolute Nucleated RBC 0.1 /100WBC 10/05/20 04:15 Sodium 141 mmol/L (136-145) 10/05/20 04:15 Corrected Sodium 141 mmol/L (136-145) 10/05/20 04:15 Potassium 4.1 mmol/L (3.5-5.1) 10/05/20 04:15 Chloride 105 mmol/L (98-107) 10/05/20 04:15 Carbon Dioxide 27.0 mmol/L (21-32) 10/05/20 04:15 BUN 5 mg/dL (7-18) L 10/05/20 04:15 Creatinine 0.89 mg/dL (0.70-1.30) 10/05/20 08:43 Est GFR (MDRD) Af Amer > 60 (>60) 10/05/20 04:15 Est GFR (MDRD) Non-Af > 60 (>60) 10/05/20 04:15 Glucose 117 mg/dL (65-99) H 10/05/20 04:15 POC Glucose (mg/dL) 129 mg/dL (65-99) H 10/06/20 19:44 Calcium 8.2 mg/dL (8.5-10.1) L 10/05/20 04:15 Corrected Calcium 8.9 mg/dL (8.5-10.1) 10/05/20 04:15 Total Bilirubin 0.30 mg/dL (0.2-1.0) 10/05/20 04:15 AST 19 Units/L (15-37) 10/05/20 04:15 ALT 23 Units/L (12-78) 10/05/20 04:15 Alkaline Phosphatase 112 Units/L (46-116) 10/05/20 04:15 Total Protein 6.1 g/dL (6.4-8.2) L 10/05/20 04:15 Albumin 3.1 g/dL (3.4-5.0) L 10/05/20 04:15 Globulin 3.0 g/dL (2.5-4.5) 10/05/20 04:15 Albumin/Globulin Ratio 1.0 Ratio (1.1-2.1) L 10/05/20 04:15 Vancomycin Trough < 2.0 ug/mL (15-20) L 10/05/20 08:43 SARS CoV-2 RNA Rapid NATALIE Negative (NEGATIVE) 10/02/20 22:19 - Assessment and Plan 1: infected ulcer Rt foot . PVD . DM. heavy smoker . same IV ATB and for surgery per Dr Koch - Problem Patient Problems: Patient Problems Superficial femoral artery occlusion (Acute) I70.209 Foot ulcer, right (Acute) L97.519 Uncontrolled diabetes mellitus (Acute) E11.65 CAD (coronary artery disease) (Acute) I25.10 Calcaneus fracture, right (Acute) S92.001A
[2020-10-07] MEDS: NORCO 5/325 MG TAB PO PRN ×3 (03:20→18:04)
[2020-10-07] MEDS: ZOSYN VIAL 3.375 GRAMS 3.375 G in NS 100 ML IV + SPIKE MINIBAG* 100 ML IV SCH ×3 (05:01→21:44)
[2020-10-07] MEDS ORDERED: TOPROL XL PO ONE (08:19)
[2020-10-07] MEDS: DUONEB 0.5 MG/3 MG (3 mL) NEB SCH ×2 (08:28→20:55)
[2020-10-07] MEDS: PULMICORT NEB TX 0.5 MG NEB SCH ×2 (08:28→20:55)
[2020-10-07] MEDS: NICOTINE PATCH TD SCH (09:05)
[2020-10-07] MEDS: ZESTRIL TAB 40 MG PO SCH (09:06)
[2020-10-07] MEDS: TOPROL XL PO SCH (09:06)
[2020-10-07] MEDS: NORVASC TAB 10 MG PO SCH (09:07)
[2020-10-07] MEDS: NS 1000 ML 1,000 ML IV SCH ×3 (10:09→23:20)
[2020-10-07] MEDS ORDERED: DIPRIVAN VIAL 40 ML ONE (12:48)
[2020-10-07] MEDS ORDERED: FENTANYL INJ 100 mcg ONE (12:48)
[2020-10-07] MEDS ORDERED: NS 1000 ML 1,000 ML ONE (12:50)
[2020-10-07] MEDS ORDERED: ANCEF VIAL 1 GRAM ONE (12:50)
[2020-10-07] MEDS ORDERED: NS 100 ML IV 100 ML ONE (12:50)
[2020-10-07] MEDS ORDERED: HEPARIN SODIUM IN D5W 75,000 UNITS/1,500 ML BAG ONE (13:24)
[2020-10-07] MEDS ORDERED: KETALAR ONE (13:59)
[2020-10-07] MEDS ORDERED: XYLOCAINE 2 % (PLAIN) ONE (13:59)
[2020-10-07] MEDS ORDERED: PROTAMINE SULFATE 50 MG VIAL ONE (13:59)
[2020-10-07] MEDS ORDERED: VERSED ONE (13:59)
[2020-10-07] MEDS: HEPARIN SODIUM INJ 5000 UNITS ONE ×2 (14:30→15:32)
[2020-10-07] MEDS ORDERED: DIPRIVAN VIAL 20 ML ONE (16:07)
[2020-10-07] MEDS ORDERED: MARCAINE or SENSORCAINE 0.25% WITH EPI IJ ONE (16:37)
--- NOTE | 2020-10-07 17:01 | OR.IMMED ---
IMMEDIATE POST-OP NOTE Immediate Post-Op Note Pre-Op Diagnosis: limb threatening ischemia right leg with non-healing wound at ankle Post-Op Diagnosis: Same, severe stenosis proximal SFA, total occlusion of the mid to distal SFA Procedure: aortogram, arteriogram right leg, athrectomy and DCB of right SFA in 2 segments and stenting of right SFA Description of Procedure: See operative summary Surgeon/Buckle Attaching Machine Operator: Zee Findings: as above Specimens Removed: none Estimated Blood Loss: < 25 cc Drains: NONE Complications: none Progress Notes: to 2nd floor plan discharge tomorrow Condition: Stable Post Hospital Plans and Medications: as above Final Diagnosis: As above
[2020-10-07] MEDS: LOVENOX INJ 40 MG SYR SC SCH (17:46)
[2020-10-07] MEDS: GLUCOPHAGE XR 24-HR PO SCH ×2 (17:46→20:15)
[2020-10-07] MEDS: LIPITOR TAB 80 MG PO SCH (17:46)
[2020-10-07] MEDS: ZETIA TAB 10 MG PO SCH (17:47)
[2020-10-07] MEDS: PLAVIX PO SCH (17:47)
[2020-10-07] MEDS: NEURONTIN CAP 300 MG PO SCH ×2 (17:47→20:22)
[2020-10-07] MEDS: SNACK - Diabetic Appropriate PO SCH (20:14)
[2020-10-07] MEDS: HumuLIN R SUBCUT PRN (20:22)
[2020-10-08] MEDS: NORCO 5/325 MG TAB PO PRN ×2 (00:16→05:45)
[2020-10-08 05:09] LABS: BASOPHILS # (AUTO) 0.1 X10^3/uL (0.0-0.1); BASOPHILS % (AUTO) 0.9 % (0.2-1.0); EOSINOPHILS # (AUTO) 0.1 x10^3/uL (0.0-0.2); EOSINOPHILS % (AUTO) 0.8 % (0.9-2.9); HEMATOCRIT 41.5 % (42.0-54.0); HEMOGLOBIN 14.2 g/dL (13.5-18.0); LYMPHOCYTES # (AUTO) 2.1 X10^3/uL (1.3-2.9); LYMPHOCYTES % (AUTO) 18.9 % (21.0-51.0); MEAN CORPUSCULAR HEMOGLOBIN 29.3 pg (27.0-34.0); MEAN CORPUSCULAR HGB CONC 34.1 g/dL (33.0-35.0); MEAN PLATELET VOLUME 8.2 fL (7.4-11.0); MONOCYTES % (AUTO) 8.9 % (0.0-13.0); NEUTROPHILS # (AUTO) 7.9 x10^3/uL (2.2-4.8); NEUTROPHILS % (AUTO) 70.5 % (42.0-75.0); PLATELET COUNT 230 X10^3/uL (150.0-450.0); RED BLOOD COUNT 4.83 X10^6/uL (4.7-6.0); RED CELL DISTRIBUTION WIDTH 14.5 % (11.6-16.5); WHITE BLOOD COUNT 11.2 X10^3/uL (3.6-10.0)
[2020-10-08] MEDS: ZOSYN VIAL 3.375 GRAMS 3.375 G in NS 100 ML IV + SPIKE MINIBAG* 100 ML IV SCH (05:19)
[2020-10-08 05:21] LABS: BLOOD UREA NITROGEN 4 mg/dL (7-18); CALCIUM 8.2 mg/dL (8.5-10.1); CARBON DIOXIDE 26.7 mmol/L (21-32); CHLORIDE 103 mmol/L (98-107); COR NA(FOR HYPERGLY) 141 mmol/L (136-145); CREATININE 0.94 mg/dL (0.70-1.30); SODIUM 138 mmol/L (136-145); eGFR NON BLACK RACES > 60 (>60)
[2020-10-08] MEDS: HumuLIN R SUBCUT PRN (05:42)
[2020-10-08] MEDS: NS 1000 ML 1,000 ML IV SCH (06:45)
[2020-10-08] MEDS: PULMICORT NEB TX 0.5 MG NEB SCH (08:39)
[2020-10-08] MEDS: DUONEB 0.5 MG/3 MG (3 mL) NEB SCH (08:39)
[2020-10-08] MEDS ORDERED: TOPROL XL PO ONE (08:43)
[2020-10-08] MEDS: GLUCOPHAGE XR 24-HR PO SCH (08:51)
[2020-10-08] MEDS: NORVASC TAB 10 MG PO SCH (08:52)
[2020-10-08] MEDS: NEURONTIN CAP 300 MG PO SCH (08:52)
[2020-10-08] MEDS: ZETIA TAB 10 MG PO SCH (08:52)
[2020-10-08] MEDS: ZESTRIL TAB 40 MG PO SCH (08:52)
[2020-10-08] MEDS: LIPITOR TAB 80 MG PO SCH (08:52)
[2020-10-08] MEDS: TOPROL XL PO SCH (08:52)
[2020-10-08 08:53] VITALS: BP 141/67
[2020-10-08] MEDS: LOVENOX INJ 40 MG SYR SC SCH (08:53)
[2020-10-08] MEDS: PLAVIX PO SCH (08:53)
[2020-10-08] MEDS: NICOTINE PATCH TD SCH (08:53)
--- NOTE | 2020-10-08 09:55 | PCM.DCPLAN ---
DISCHARGE SUMMARY Admission Date Date of Admission: 10/03/20 Discharge Date Discharge Date: 10/08/20 Admission Diagnoses (1) Superficial femoral artery occlusion: Status: Acute (2) Foot ulcer, right: Status: Acute (3) Uncontrolled diabetes mellitus: Status: Acute (4) CAD (coronary artery disease): Status: Acute (5) Calcaneus fracture, right: Status: Acute (6) Pacemaker: Status: Acute (7) Atherosclerosis of [place] arteries of extremities with gangrene, right leg: Status: Acute Discharge Diagnoses Discharge Diagnosis: limb threatening ischemia right leg Discharge Medications Discharge Medications: Home Medication List amlodipine 10 mg PO DAILY 10/02/20 [History] atorvastatin 80 mg PO DAILY 10/02/20 [History] ciprofloxacin HCl 500 mg PO BID 10/02/20 [History] clopidogrel 75 mg PO DAILY 10/02/20 [History] collagenase clostridium histo. [Santyl] 1 applic TOPICAL DAILY 10/02/20 [History] ezetimibe 10 mg PO DAILY 10/02/20 [History] [id number]-[id number]-[id number] [Trelegy Ellipta] 1 inh INHALATION DAILY 10/02/20 [History] gabapentin 300 mg PO BID 10/02/20 [History] lisinopril 40 mg PO DAILY 10/02/20 [History] metformin 1,000 mg PO QHS 10/02/20 [History] metformin 500 mg PO QAM 10/02/20 [History] metoprolol succinate 100 mg PO DAILY 10/02/20 [History] semaglutide [Rybelsus] 7 mg PO DAILY 10/02/20 [History] Prescriptions: Hospital Course Vital Signs: Temperature 98.4 F Pulse Rate [Right Brachial] 69 Pulse Rate 64 Respiratory Rate 20 Blood Pressure [Right Arm] 141/67 Blood Pressure 134/80 O2 Sat by Pulse Oximetry 93 Latest Lab Results: Laboratory Last Values WBC 11.2 X10^3/uL (3.6-10.0) H 10/08/20 04:15 RBC 4.83 X10^6/uL (4.7-6.0) 10/08/20 04:15 Hgb 14.2 g/dL (13.5-18.0) 10/08/20 04:15 Hct 41.5 % (42.0-54.0) L 10/08/20 04:15 MCV 86.0 fL (80.0-100.0) 10/08/20 04:15 MCH 29.3 pg (27.0-34.0) 10/08/20 04:15 MCHC 34.1 g/dL (33.0-35.0) 10/08/20 04:15 RDW 14.5 % (11.6-16.5) 10/08/20 04:15 Plt Count 230 X10^3/uL (150.0-450.0) 10/08/20 04:15 MPV 8.2 fL (7.4-11.0) 10/08/20 04:15 Neut % (Auto) 70.5 % (42.0-75.0) 10/08/20 04:15 Lymph % (Auto) 18.9 % (21.0-51.0) L 10/08/20 04:15 [place] % (Auto) 8.9 % (0.0-13.0) 10/08/20 04:15 Eos % (Auto) 0.8 % (0.9-2.9) L 10/08/20 04:15 Baso % (Auto) 0.9 % (0.2-1.0) 10/08/20 04:15 Neut # (Auto) 7.9 x10^3/uL (2.2-4.8) H 10/08/20 04:15 Lymph # (Auto) 2.1 X10^3/uL (1.3-2.9) 10/08/20 04:15 [place] # (Auto) 1.0 x10^3/uL (0.3-0.8) H 10/08/20 04:15 Eos # (Auto) 0.1 x10^3/uL (0.0-0.2) 10/08/20 04:15 Baso # (Auto) 0.1 X10^3/uL (0.0-0.1) 10/08/20 04:15 Absolute Nucleated RBC 0.0 /100WBC 10/08/20 04:15 Sodium 138 mmol/L (136-145) 10/08/20 04:15 Corrected Sodium 141 mmol/L (136-145) 10/08/20 04:15 Potassium 3.6 mmol/L (3.5-5.1) 10/08/20 04:15 Chloride 103 mmol/L (98-107) 10/08/20 04:15 Carbon Dioxide 26.7 mmol/L (21-32) 10/08/20 04:15 BUN 4 mg/dL (7-18) L 10/08/20 04:15 Creatinine 0.94 mg/dL (0.70-1.30) 10/08/20 04:15 Est GFR (MDRD) Af Amer > 60 (>60) 10/08/20 04:15 Est GFR (MDRD) Non-Af > 60 (>60) 10/08/20 04:15 Glucose 225 mg/dL (65-99) H 10/08/20 04:15 POC Glucose (mg/dL) 210 mg/dL (65-99) H 10/07/20 19:30 Calcium 8.2 mg/dL (8.5-10.1) L 10/08/20 04:15 Corrected Calcium 8.9 mg/dL (8.5-10.1) 10/05/20 04:15 Total Bilirubin 0.30 mg/dL (0.2-1.0) 10/05/20 04:15 AST 19 Units/L (15-37) 10/05/20 04:15 ALT 23 Units/L (12-78) 10/05/20 04:15 Alkaline Phosphatase 112 Units/L (46-116) 10/05/20 04:15 Total Protein 6.1 g/dL (6.4-8.2) L 10/05/20 04:15 Albumin 3.1 g/dL (3.4-5.0) L 10/05/20 04:15 Globulin 3.0 g/dL (2.5-4.5) 10/05/20 04:15 Albumin/Globulin Ratio 1.0 Ratio (1.1-2.1) L 10/05/20 04:15 Vancomycin Trough < 2.0 ug/mL (15-20) L 10/05/20 08:43 SARS CoV-2 RNA Rapid NATALIE Negative (NEGATIVE) 10/02/20 22:19 Hospital Course: 54 yo male referred foe limb threatening ischemia with complete total occlusion of the right mid to distal superficial femoral artery and significant stenosis of the proximal right superficial femoral artery with non- healing wound to the right ankle. Patient is diabetic and heavy smoker.He was admitted and placed on antibiotics and underwent local wound care. On October 07 he was taken to the operating suite and underwent arteriogram and atherectomy and drug- coated balloon angioplasty of the right proximal superficial femoral artery and atherectomy and drug coated balloon angioplasty and stenting of the complete total occlusion of the mid-to distal right superficial femoral artery. He also had excisional debridement of the right foot wound . He is doing well. His foot is warm with excellent pulse in the dorsalis pedis location. He be discharged today on his usual medications plus Plavix 75 mg PO Q day. I will see him in one week. He will be referred back to his research professor of biostatistics in [place] for resolution of the wound. Instructions Instructions: Diabetes Mellitus and Foot Care Wound Infection, [id number] Chronic Obstructive Pulmonary Disease, [id number] Atherectomy, Care After Hypertension, [id number]-[id number] Steps to Quit Smoking Forms: Excuse From Work or School Precautions for COVID19 Patient Portal Social Distancing
--- NOTE | 2020-10-08 19:34 | DR.OPNOTE ---
OP NOTE Pre-Op Diagnosis: Limb threatening ischemia right lower extremity with non healing wound Post-Op Diagnosis: Same Procedure Date Date Of Procedure: 10/07/20 Procedure: This patient was taken to the operating suite and placed in the supine position. Left groin and the entire right leg prepped and draped in sterile fashion. Timeout for the procedure obtained. Ultrasound was used to locate the left common femoral artery and the skin overlying it infiltrated with 0.5% Marcaine with epinephrine. Ultrasonography used to guide the puncture of the left common femoral artery and a 0.014 inch wire placed without difficulty. Sedation supervision was carried out by myself. Incision made over the guidewire at the skin level and a micro sheath placed over the small wire into the left common femoral artery. Small wire exchange for a 0.035 inch Adv antage guidewire and the micro sheath exchanged for a 5 [place] short vascular sheath . The Omni catheter was placed over the guidewire and diagnostic aortogram carried out showing severe disease of the aorta and both common iliac arteries but no significant stenosis. With some difficulty the Omni catheter was used to guide the wire down the patient's right side to the right common from artery. At this point the Omni catheter exchanged for a Trailblazer catheter placed over the wire and sequential diagnostic arteriogram carried out of the right extremity showing severe disease of the proximal right superficial femoral artery with complete total occlusion of the mid-to distal surficial femoral artery with reconstitution of the popliteal artery which is normal and normal trifurcation vessels to the ankle. At this point the short vascular sheath in the left groin exchanged for a 6 Fr destination catheter which was parked in the right common femoral artery. The patient had been heparinized with 5000 units of heparin. Additional heparin had been given at one hour of 3000 units. Using a 0.018 inch wire I was able to get across the complete total occlusion into the [place] vessel popliteal artery. At this point I placed a Trailblazer catheter over the 0.018 inch wire into the popliteal artery and then exchanged this wire for a 0.014 inch Spider basket and wire. Over the spider wire the iPlingk one atherectomy directional device was used to perform atherectomy of the proximal superficial femoral artery as well as the complete total occlusion of the mid-to distal right superficial femoral artery. Once this was done repeat arteriogram carried out showing marked improvement of the disease. Area of the complete total occlusion of the superficial femoral artery ballooned open with a 6 mm x 120 mm Chocolate balloon. This was Held open for one minute. This was replaced with a [employer] [place] 6 mm x200 mm drug-coated angioplasty balloon and was taken down into the normal popliteal artery and inflated for 3 minutes. This was then removed and the proximal superficial femoral artery of the right leg ballooned open with a 6 mm x 100 mm [employer] [place] drug-coated balloon which is held open for 3 minutes. After this repeat arteriogram carried out showing good flow the entire vessel with excellent result proximally with dissection in the area of the complete total occlusion. For this reason we placed a [employer] 6 mm x 80 mm Radha drug coated stent over the area of dissection and dilated it with a 6 mm balloon. Repeat arteriogram showed excellent flow with no evidence of dissection. The wire and the destination catheter pulled back into the aorta. The destination sheath exchanged for a 7 [place] short vascular sheath in the left groin. The long wire removed and the wire for the Angioseal device placed and the puncture of the left common from artery closed with the Angioseal device. There was no active bleeding. Patient tolerated this very well with a warm right extremity at the completion of the procedure. Type of Anesthesia: Local (10 cc 0.5% Marcaine with epinephrine) Anesthesia Comment: MAC and local Findings: Severe disease and stenosis of the right proximal superficial femoral artery and complete total occlusion of mid to distal right superficial femoral artery with reconstitution of the right popliteal artery. Specimen/Pathology: none Type of Fluids Used:: Lactated Ringers Urine output: 0 EBL: < 25 cc Drains/Tubes Placed: None Complications:: none Needle/Sponge Count:: correct Disposition/Condition: Pt. tolerated procedure without difficulty. Taken to PACU in stable condition.
== END 2020-10-08 14:20 | disposition home health service (06) | DRG 272 ==
LOC: MED/SURG 20:51 → ER 20:51 → MED/SURG 10-03 00:36
PROVIDERS: ADMIT Surgery; ATTEND Surgery
DX: Z20.822 Contact with and (suspected) exposure to COVID-19; X58.XXXA Exposure to other specified factors, initial encounter; E11.51 Type 2 diabetes mellitus with diabetic peripheral angiopathy without gangrene; S92.001A Unspecified fracture of right calcaneus, initial encounter for closed fracture; E11.621 Type 2 diabetes mellitus with foot ulcer; Z95.0 Presence of cardiac pacemaker; I70.233 Atherosclerosis of native arteries of right leg with ulceration of ankle; R94.31 Abnormal electrocardiogram [ECG] [EKG]; L97.418 Non-pressure chronic ulcer of right heel and midfoot with other specified severity; Z72.0 Tobacco use; J44.9 Chronic obstructive pulmonary disease, unspecified; I77.1 Stricture of artery; I25.10 Atherosclerotic heart disease of native coronary artery without angina pectoris; B96.29 Other Escherichia coli [E. coli] as the cause of diseases classified elsewhere

== ENCOUNTER 2020-11-12 16:10 | Inpatient (IN) ==
[2020-11-12 23:04] VITALS: BMI 25.0
--- NOTE | 2020-11-13 00:10 | DR.H&P ---
H&P History & Physical for Day of: H&P Date: 11/13/20 Chief Complaint Chief Complaint: Non-healing wound right ankle and calcaneus, significant osteomyelitis right ankle . Allergies Allergies Allergy/AdvReac Type Severity Reaction Status Date / Time No Known Drug Allergies Allergy Verified 10/02/20 22:22 History of Present Illness History of Present Illness: 54-year-old male with known right calcaneal fracture which has not been healing. Patient was seen by me for complete occlusion of the right superficial femoral artery and popliteal arteryand had peripheral intervention with atherectomy and drug-coated balloon angioplasty of the right superficial femoral and popliteal artery. I established excellent arterial right leg flow but the bone has not healed any. He has been recommended for amputation by infectious disease physician and his regional forester. I had admitted him for evaluation and below knee amputation of the right leg. He does have reestablished arterial flow with palpable distal pulses which most likely has provided the ability to spare him an above knee amputation and proceed only with below knee amputation. Past Medical History Past Medical History: COPD (> 80 packyear smoker, now has stopped smoking), Coronary Artery Disease (Hx of CABG 17 years ago, multiple coronary stents, has pacemaker/defibrillator), Diabetes, Dyslipidemia, Gout, Hypertension and [place] Past Surgical History Surgical History: Angioplasty/Stents and CABG/Valve Surgery Additional Surgical History: HAs pacemaker /defibrilator Family History Family Medical History: Diabetes Mellitus and Cancer Social History Does patient currently use any type of tobacco product: No (recently stopped smoking ) Have you used tobacco products in the last 12 months: Yes Type of Tobacco Use: Cigarettes How many years tobacco product used: 80 Alcohol Use: None Drug Use: None Medications Home Medications: No Known Drug Allergies Allergy (Verified 10/02/20 22:22) CONTINUE taking the following medications amlodipine 10 mg PO DAILY 11/12/20 [History] aspirin 325 mg PO DAILY 11/12/20 [History] hydralazine 25 mg PO TID 11/12/20 [History] levofloxacin 750 mg PO DAILY 11/12/20 [History] linezolid 600 mg PO BID 11/12/20 [History] atorvastatin 80 mg po daily Plavix 75 mg po daily ezetimibe 10 mg po daily gabapentin 300 mg po BID Trelegy 1 INH daily lisinopril 40 mg po daily metformin 1000 mg po ghs metformin 500 mg po q AM Labs Result Diagrams: 11/13/20 06:21 Labs: Laboratory POC Glucose (mg/dL) 164 mg/dL (65-99) H 11/12/20 22:59 SARS-CoV-2 (PCR) Negative (NEGATIVE) 11/12/20 20:49 Influenza Type A (PCR) Negative (NEGATIVE) 11/12/20 20:49 Influenza Type B (PCR) Negative (NEGATIVE) 11/12/20 20:49 RSV (PCR) Negative (NEGATIVE) 11/12/20 20:49 Review of Systems Constitutional: No Symptoms Reported, See HPI and Other ( C/O pain right ankle) Eyes: No Symptoms Reported ENT: No Symptoms Reported Respiratory: No Symptoms Reported Cardiovascular: No Symptoms Reported (defibrillator has not fired ) Gastrointestinal: No Symptoms Reported Genitourinary: No Symptoms Reported Musculoskeletal: Leg Pain (significatn osteomyelitis of right heel/ankle) Skin: Wound (open wound right medial ankle/calcaneous) Neurological: No Symptoms Reported Physical Exam Vital Signs: Temperature 97.7 F Pulse Rate [Radial] 75 Respiratory Rate 24 Blood Pressure [Left Arm] 149/72 Blood Pressure [Right Arm] 141/67 O2 Sat by Pulse Oximetry 91 Oriented: Time, Person and Place Eyes: Normal Ear: Normal Nose: Normal Throat: Normal Respiratory: Clear Throughout Cardiovascular: Other (paced rhythm, all pulse intact both LE all the way to the ankle ) : Normal Auscultation: Bowel Sounds: Normal Palpation: Normal Tenderness: Normal Skin: Other ( 5x3x2 cm wound right medial foot/ ankle) Psychiatric: Normal Mood Description: Calm and Happy Affect: Normal Speech Pattern: Clear Assessment/Plan (1) Superficial femoral artery occlusion: Narrative Support Text: Now resloved with palpable pulse at right ankle and in popliteal space Status: Acute Plan: This will help below knee amputation heal (2) Foot ulcer, right: Qualifiers: Non-pressure ulcer stage: with fat layer exposed Qualified Code(s): L97.512 - Non-pressure chronic ulcer of other part of right foot with fat layer exposed Narrative Support Text: Significant osteomylitis right medial ankle . Will undergo right below knee amputation. Status: Acute (3) Uncontrolled diabetes mellitus: Qualifiers: Diabetes mellitus type: type 2 Glycemic state: with hyperglycemia Qualified Code(s): E11.65 - Type 2 diabetes mellitus with hyperglycemia Status: Acute Plan: sliding scale insulin, check A1C (4) CAD (coronary artery disease): Qualifiers: Associated angina: without angina Coronary Disease-Associated Artery/Lesion type: [place] artery [place] vs. transplanted heart: [place] heart Qualified Code(s): I25.10 - Atherosclerotic heart disease of [place] coronary artery without angina pectoris Status: Acute Plan: stable. No chest pain or SOB, pacemaker/defibrillator in place (5) Calcaneus fracture, right: Qualifiers: Calcaneus location: unspecified portion of calcaneus Encounter type: in itial encounter Fracture alignment: nondisplaced Fracture type: closed Qualified Code(s): S92.001A - Unspecified fracture of right calcaneus, initial encounter for closed fracture Status: Acute Plan: proceed with right below knee amputation (6) Pacemaker: Narrative Support Text: stable Status: Acute Review H&P Reviewed: Yes Patient was examined?: Yes
[2020-11-13 06:35] LABS: BASOPHILS % (AUTO) 0.5 % (0.2-1.0); EOSINOPHILS # (AUTO) 0.2 x10^3/uL (0.0-0.2); EOSINOPHILS % (AUTO) 2.1 % (0.9-2.9); HEMATOCRIT 40.7 % (42.0-54.0); HEMOGLOBIN 13.8 g/dL (13.5-18.0); LYMPHOCYTES % (AUTO) 23.7 % (21.0-51.0); MEAN CORPUSCULAR VOLUME 85.6 fL (80.0-100.0); MEAN PLATELET VOLUME 7.7 fL (7.4-11.0); MONOCYTES # (AUTO) 0.9 x10^3/uL (0.3-0.8); MONOCYTES % (AUTO) 10.2 % (0.0-13.0); NEUTROPHILS # (AUTO) 5.4 x10^3/uL (2.2-4.8); NEUTROPHILS % (AUTO) 63.5 % (42.0-75.0); PLATELET COUNT 111 X10^3/uL (150.0-450.0); RED BLOOD COUNT 4.76 X10^6/uL (4.7-6.0); WHITE BLOOD COUNT 8.4 X10^3/uL (3.6-10.0)
[2020-11-13] MEDS ORDERED: TOPROL XL PO ONE (08:08)
[2020-11-13] MEDS: LIPITOR TAB 80 MG PO SCH (08:50)
[2020-11-13] MEDS: TOPROL XL PO SCH (08:50)
[2020-11-13] MEDS: NORVASC TAB 10 MG PO SCH (08:50)
[2020-11-13] MEDS: ZETIA TAB 10 MG PO SCH (08:50)
[2020-11-13] MEDS: ZESTRIL TAB 40 MG PO SCH (08:50)
[2020-11-13] MEDS: NEURONTIN CAP 300 MG PO SCH ×2 (08:50→20:34)
[2020-11-13] MEDS: PULMICORT NEB TX 0.5 MG NEB SCH ×2 (09:45→20:30)
[2020-11-13] MEDS ORDERED: DILAUDID INJ ONE (10:30)
[2020-11-13] MEDS: DILAUDID INJ IVP PRN ×3 (10:44→21:47)
--- NOTE | 2020-11-13 17:54 | NOTE.SOAP ---
Soap Note Note for Day of Date of Exam: 11/13/20 Subjective Data Subjective Data: Planning for right below knee amputation tomorrow. Objective Data Temperature: 97.5 F Pulse Rate: 72 Respiratory Rate: 18 Blood Pressure: 117/60 O2 Sat by Pulse Oximetry: 97 Objective Data: No change in physical exam. Assessment Assessment: non healing wound right leg. Arterial flow re-established via athrectomy and drug coated balloon angioplasty Plan Plan: Right below knee amputation. Risks and benefits discussed. Patient agrees to proceed.
[2020-11-14] MEDS: DILAUDID INJ IVP PRN ×6 (01:30→22:27)
[2020-11-14 06:53] LABS: ALANINE AMINOTRANSFERASE 26 Units/L (12-78); ALBUMIN 3.2 g/dL (3.4-5.0); ALKALINE PHOSPHATASE 97 Units/L (46-116); ASPARTATE AMINO TRANSFERASE 19 Units/L (15-37); BLOOD UREA NITROGEN 10 mg/dL (7-18); CALCIUM 8.5 mg/dL (8.5-10.1); CARBON DIOXIDE 32.8 mmol/L (21-32); CHLORIDE 103 mmol/L (98-107); COR CA(FOR HYPOALB) 9.1 mg/dL (8.5-10.1); SODIUM 140 mmol/L (136-145); TOTAL PROTEIN 6.3 g/dL (6.4-8.2); eGFR NON BLACK RACES > 60 (>60)
[2020-11-14] MEDS ORDERED: TOPROL XL PO ONE (08:48)
[2020-11-14] MEDS: NEURONTIN CAP 300 MG PO SCH ×2 (08:51→20:25)
[2020-11-14] MEDS: NORVASC TAB 10 MG PO SCH (08:51)
[2020-11-14] MEDS: LIPITOR TAB 80 MG PO SCH (08:51)
[2020-11-14] MEDS: ZETIA TAB 10 MG PO SCH (08:52)
[2020-11-14] MEDS: TOPROL XL PO SCH (08:52)
[2020-11-14] MEDS: ZESTRIL TAB 40 MG PO SCH (08:53)
[2020-11-14] MEDS: PULMICORT NEB TX 0.5 MG NEB SCH ×2 (09:35→20:40)
--- NOTE | 2020-11-14 23:17 | NOTE.SOAP ---
Soap Note Note for Day of Date of Exam: 11/14/20 Subjective Data Subjective Data: Patient admitted for right below knee amputation due to severe osteomyelitis with collapse of heel. Has pacemaker / defibrillator in place and has been cleared for surgery. Will proceed with right below knee amputation tomorrow. Risks and benefits has been discussed and he agrees to proceed. Objective Data Temperature: 97.8 F Pulse Rate: 58 Respiratory Rate: 18 Blood Pressure: 160/67 O2 Sat by Pulse Oximetry: 93 Objective Data: open wound right foot, excellent pulses at ankle Assessment Assessment: osteomyelitis of the right foot, S/P athrectomy and DCB angioplasty of right SFA and popliteal arteries Plan Plan: right below knee amputation tomorrow
[2020-11-15] MEDS: DILAUDID INJ IVP PRN ×7 (00:37→23:26)
[2020-11-15] MEDS ORDERED: BRIDION ONE (09:27)
[2020-11-15] MEDS ORDERED: DILAUDID INJ ONE (09:27)
[2020-11-15] MEDS ORDERED: FENTANYL VIAL INJ 100 mcg ONE (09:28)
[2020-11-15] MEDS ORDERED: OFIRMEV IV 1000 MG VIAL 1,000 MG/100 ML VIAL IV ONE (09:28)
[2020-11-15] MEDS ORDERED: BETADINE SOLN ONE (09:28)
[2020-11-15] MEDS ORDERED: LR 1000 ML IV 1,000 ML IV ONE (09:30)
[2020-11-15] MEDS ORDERED: ANCEF 1 GRAM IV PREMIX* 2 G/100 ML BAG IV ONE (09:31)
[2020-11-15] MEDS ORDERED: XYLOCAINE 2 % (PLAIN) ONE (09:55)
[2020-11-15] MEDS ORDERED: EPHEDRINE SULFATE INJ ONE (09:55)
[2020-11-15] MEDS ORDERED: ZOFRAN INJ 4 MG VIAL ONE (09:55)
[2020-11-15] MEDS ORDERED: SUPRANE ONE (09:55)
[2020-11-15] MEDS ORDERED: KETALAR ONE (09:55)
[2020-11-15] MEDS ORDERED: VERSED ONE (09:55)
[2020-11-15] MEDS ORDERED: ZEMURON 50 MG VIAL ONE (09:55)
[2020-11-15] MEDS: PULMICORT NEB TX 0.5 MG NEB SCH ×2 (11:00→20:15)
[2020-11-15] MEDS ORDERED: ZOFRAN INJ 4 MG VIAL IVP PRN (11:12)
[2020-11-15] MEDS ORDERED: DILAUDID INJ IVP PRN ×2 (11:12→11:15)
[2020-11-15] MEDS ORDERED: PHENERGAN INJ 25 MG IM PRN (11:12)
[2020-11-15] MEDS ORDERED: REGLAN INJ 10 MG VIAL IVP PRN (11:12)
[2020-11-15] MEDS ORDERED: BARHEMSYS INJ IVP PRN (11:12)
[2020-11-15] MEDS ORDERED: BENADRYL INJ 50 MG VIAL IVP PRN (11:12)
--- NOTE | 2020-11-15 11:14 | OR.IMMED ---
IMMEDIATE POST-OP NOTE Immediate Post-Op Note Pre-Op Diagnosis: sever osteomyelitis right foot Post-Op Diagnosis: same Procedure: right below knee amputation Description of Procedure: see operative summary Surgeon/Recruiting Manager: Zee Findings: as above Specimens Removed: right leg below knee Estimated Blood Loss: 200cc Drains: NONE Complications: none Progress Notes: to PACU then to floor Condition: Stable Final Diagnosis: severe osteomyelitis right foot, S/P athrectomy and balloon angioplasty to prevent above knee amputation and proceed with below knee amputation.
--- NOTE | 2020-11-15 11:31 | DR.OPNOTE ---
OP NOTE Pre-Op Diagnosis: severe osteomyelitis right foot Post-Op Diagnosis: same Procedure Date Date Of Procedure: 11/15/20 Procedure: This patient was taken to the operating suite, placed in the supine position and general endotracheal anesthesia induced. The entire right leg prepped and draped in sterile fashion. Timeout for the procedure obtained. Standard dog-leg incision was performed one handsbreath below tibial tuberosity with a number 10 blade knife. The muscles of the anterior tibial compartment divided with electrocautery and anterior tibial artery divided between clamps and tied with 2-0 silk suture ligatures. The periosteum of the tibia elevated with a periosteum elevator and the tibia divided with a giggly saw. The fibula divided with a bone cutter. 10 blade knife used to complete to the amputation creating the turbine room attendant flap. All blood vessels either tied with 2-0 silk suture ligatures or controlled with electrocautery. The entire stump irrigated with saline . No further bleeding was noted. The 2 flaps were approximated with interrupted 0 Vicryl sutures and skin closed with skin krysten. Dressing applied. Type of Anesthesia: General Anesthetic w/ETT Findings: as above, Hs of right superficial femoral athrectomy and drug coated balloon angioplsty and Specimen/Pathology: right leg below knee Type of Fluids Used:: Lactated Ringers Total Amount of Fluid Infused:: 500 cc Urine output: 0 EBL: 200 cc Drains/Tubes Placed: None Complications:: none Needle/Sponge Count:: correct Disposition/Condition: Pt. tolerated procedure without difficulty. Extubated in the OR and taken to PACU in stable condition.
[2020-11-15] MEDS: LIPITOR TAB 80 MG PO SCH (14:01)
[2020-11-15] MEDS: ZESTRIL TAB 40 MG PO SCH (14:01)
[2020-11-15] MEDS: NEURONTIN CAP 300 MG PO SCH ×2 (14:01→20:46)
[2020-11-15] MEDS: TOPROL XL PO SCH (14:01)
[2020-11-15] MEDS: NORVASC TAB 10 MG PO SCH (14:01)
[2020-11-15] MEDS: ZETIA TAB 10 MG PO SCH (14:02)
[2020-11-15] MEDS: LR 1000 ML IV 1,000 ML IV SCH (14:25)
[2020-11-16] MEDS: DILAUDID INJ IVP PRN ×8 (01:21→22:15)
[2020-11-16] MEDS: LR 1000 ML IV 1,000 ML IV SCH ×2 (01:22→13:43)
[2020-11-16 06:24] LABS: BASOPHILS % (AUTO) 0.2 % (0.2-1.0); EOSINOPHILS # (AUTO) 0.1 x10^3/uL (0.0-0.2); EOSINOPHILS % (AUTO) 0.8 % (0.9-2.9); HEMATOCRIT 35.5 % (42.0-54.0); HEMOGLOBIN 11.8 g/dL (13.5-18.0); LYMPHOCYTES # (AUTO) 2.5 X10^3/uL (1.3-2.9); MEAN CORPUSCULAR HEMOGLOBIN 28.2 pg (27.0-34.0); MEAN CORPUSCULAR HGB CONC 33.1 g/dL (33.0-35.0); MEAN CORPUSCULAR VOLUME 85.2 fL (80.0-100.0); MEAN PLATELET VOLUME 8.3 fL (7.4-11.0); MONOCYTES # (AUTO) 2.7 x10^3/uL (0.3-0.8); MONOCYTES % (AUTO) 17.7 % (0.0-13.0); NEUTROPHILS # (AUTO) 10.1 x10^3/uL (2.2-4.8); NEUTROPHILS % (AUTO) 65.3 % (42.0-75.0); PLATELET COUNT 142 X10^3/uL (150.0-450.0); RED BLOOD COUNT 4.17 X10^6/uL (4.7-6.0); WHITE BLOOD COUNT 15.5 X10^3/uL (3.6-10.0)
[2020-11-16] MEDS ORDERED: TOPROL XL PO ONE (08:54)
[2020-11-16] MEDS: ZESTRIL TAB 40 MG PO SCH (08:59)
[2020-11-16] MEDS: NEURONTIN CAP 300 MG PO SCH ×2 (09:00→20:29)
[2020-11-16] MEDS: NORVASC TAB 10 MG PO SCH (09:00)
[2020-11-16] MEDS: ZETIA TAB 10 MG PO SCH (09:00)
[2020-11-16] MEDS: TOPROL XL PO SCH (09:01)
[2020-11-16] MEDS: LIPITOR TAB 80 MG PO SCH (09:01)
[2020-11-16] MEDS: PULMICORT NEB TX 0.5 MG NEB SCH ×2 (09:10→20:20)
--- NOTE | 2020-11-16 09:57 | NOTE.SOAP ---
Soap Note Note for Day of Date of Exam: 11/16/20 Subjective Data Subjective Data: POD # 1 after right BKA, Doing well. Pain under control. Objective Data Temperature: 98.7 F Pulse Rate: 79 Respiratory Rate: 18 Blood Pressure: 155/74 O2 Sat by Pulse Oximetry: 97 Objective Data: Stump dressing clean and dry Assessment Assessment: S/P right BKA Plan Plan: PT consult D/C home next week
[2020-11-16] MEDS ORDERED: COLACE CAP 100 MG PO PRN (22:11)
[2020-11-16] MEDS ORDERED: COLACE CAP 100 MG PO ONE (22:13)
[2020-11-17] MEDS: LR 1000 ML IV 1,000 ML IV SCH ×4 (01:54→15:45)
[2020-11-17] MEDS: DILAUDID INJ IVP PRN ×7 (01:54→22:50)
[2020-11-17] MEDS ORDERED: MILK OF MAGNESIA PO PRN (07:54)
[2020-11-17] MEDS: NORVASC TAB 10 MG PO SCH (08:17)
[2020-11-17] MEDS: LIPITOR TAB 80 MG PO SCH (08:17)
[2020-11-17] MEDS: NEURONTIN CAP 300 MG PO SCH ×2 (08:17→20:22)
[2020-11-17] MEDS: ZESTRIL TAB 40 MG PO SCH (08:17)
[2020-11-17] MEDS ORDERED: TOPROL XL PO ONE (08:54)
[2020-11-17] MEDS: TOPROL XL PO SCH (09:11)
[2020-11-17] MEDS: ZETIA TAB 10 MG PO SCH (09:11)
[2020-11-17] MEDS: PULMICORT NEB TX 0.5 MG NEB SCH ×2 (09:27→21:50)
--- NOTE | 2020-11-17 16:16 | DR.PROGNOT ---
Hospital Progress Notes - Progress Note for Day of: Progress Note Date: 11/17/20 - Chief Complaint Chief Complaint: c/o phantom pain otherwise doing well . BS 150. WBC 15.5 - Past Medical Family Social History Past Med/Fam/Surg Hx: No changes since H&P Allergies: Allergies No Known Drug Allergies Allergy (Verified 10/02/20 22:22) - Review Of Systems ROS: No change since H&P - Vital Signs Vital Signs: Temperature 98.0 F Pulse Rate [Radial] 70 Pulse Rate 76 Respiratory Rate 18 Blood Pressure [Left Arm] 170/79 Blood Pressure [Right Arm] 104/59 Blood Pressure 155/74 O2 Sat by Pulse Oximetry 94 - Physical Exam Oriented: Time, Person, Place Eyes: Normal Ear: Normal Nose: Normal Throat: Normal Cardiovascular: Other (paced rhythm, all pulse intact both LE all the way to the ankle) : Normal GI:Auscultation: Normal GI:Palpation: Normal GI: Tenderness: Normal Skin: Other (dressing intsct . no drainage .) Psychiatric: Normal Mood Description: Calm, Appropriate Affect: Normal Speech Pattern: Clear, Appropriate - Laboratory and Diagnostics Result Diagrams: 11/16/20 05:33 11/14/20 05:59 Labs: Laboratory WBC 15.5 X10^3/uL (3.6-10.0) H 11/16/20 05:33 RBC 4.17 X10^6/uL (4.7-6.0) L 11/16/20 05:33 Hgb 11.8 g/dL (13.5-18.0) L D 11/16/20 05:33 Hct 35.5 % (42.0-54.0) L 11/16/20 05:33 MCV 85.2 fL (80.0-100.0) 11/16/20 05:33 MCH 28.2 pg (27.0-34.0) 11/16/20 05:33 MCHC 33.1 g/dL (33.0-35.0) 11/16/20 05:33 RDW 14.0 % (11.6-16.5) 11/16/20 05:33 Plt Count 142 X10^3/uL (150.0-450.0) L 11/16/20 05:33 MPV 8.3 fL (7.4-11.0) 11/16/20 05:33 Neut % (Auto) 65.3 % (42.0-75.0) 11/16/20 05:33 Lymph % (Auto) 16.0 % (21.0-51.0) L 11/16/20 05:33 [place] % (Auto) 17.7 % (0.0-13.0) H 11/16/20 05:33 Eos % (Auto) 0.8 % (0.9-2.9) L 11/16/20 05:33 Baso % (Auto) 0.2 % (0.2-1.0) 11/16/20 05:33 Neut # (Auto) 10.1 x10^3/uL (2.2-4.8) H 11/16/20 05:33 Lymph # (Auto) 2.5 X10^3/uL (1.3-2.9) 11/16/20 05:33 [place] # (Auto) 2.7 x10^3/uL (0.3-0.8) H 11/16/20 05:33 Eos # (Auto) 0.1 x10^3/uL (0.0-0.2) 11/16/20 05:33 Baso # (Auto) 0.0 X10^3/uL (0.0-0.1) 11/16/20 05:33 Absolute Nucleated RBC 0.0 /100WBC 11/16/20 05:33 Sodium 140 mmol/L (136-145) 11/14/20 05:59 Corrected Sodium TNP 11/14/20 05:59 Potassium 4.3 mmol/L (3.5-5.1) 11/14/20 05:59 Chloride 103 mmol/L (98-107) 11/14/20 05:59 Carbon Dioxide 32.8 mmol/L (21-32) H 11/14/20 05:59 BUN 10 mg/dL (7-18) 11/14/20 05:59 Creatinine 0.80 mg/dL (0.70-1.30) 11/14/20 05:59 Est GFR (MDRD) Af Amer > 60 (>60) 11/14/20 05:59 Est GFR (MDRD) Non-Af > 60 (>60) 11/14/20 05:59 Glucose 101 mg/dL (65-99) H 11/14/20 05:59 POC Glucose (mg/dL) 150 mg/dL (65-99) H 11/17/20 16:07 Calcium 8.5 mg/dL (8.5-10.1) 11/14/20 05:59 Corrected Calcium 9.1 mg/dL (8.5-10.1) 11/14/20 05:59 Total Bilirubin 0.30 mg/dL (0.2-1.0) 11/14/20 05:59 AST 19 Units/L (15-37) 11/14/20 05:59 ALT 26 Units/L (12-78) 11/14/20 05:59 Alkaline Phosphatase 97 Units/L (46-116) 11/14/20 05:59 Total Protein 6.3 g/dL (6.4-8.2) L 11/14/20 05:59 Albumin 3.2 g/dL (3.4-5.0) L 11/14/20 05:59 Globulin 3.1 g/dL (2.5-4.5) 11/14/20 05:59 Albumin/Globulin Ratio 1.0 Ratio (1.1-2.1) L 11/14/20 05:59 SARS-CoV-2 (PCR) Negative (NEGATIVE) 11/12/20 20:49 Influenza Type A (PCR) Negative (NEGATIVE) 11/12/20 20:49 Influenza Type B (PCR) Negative (NEGATIVE) 11/12/20 20:49 RSV (PCR) Negative (NEGATIVE) 11/12/20 20:49 Tissue Pathology To follow 11/15/20 10:56 - Assessment and Plan 1: s/p BKA right leg . PVD, DM . same post op care .PT and d/c in am as per Dr colvin .
[2020-11-18] MEDS: LR 1000 ML IV 1,000 ML IV SCH ×2 (03:19→06:26)
[2020-11-18] MEDS: DILAUDID INJ IVP PRN (06:25)
[2020-11-18] MEDS ORDERED: TOPROL XL PO ONE (08:13)
[2020-11-18] MEDS: TOPROL XL PO SCH (08:28)
[2020-11-18] MEDS: NORVASC TAB 10 MG PO SCH (08:29)
[2020-11-18] MEDS: NEURONTIN CAP 300 MG PO SCH (08:29)
[2020-11-18] MEDS: ZETIA TAB 10 MG PO SCH (08:29)
[2020-11-18] MEDS: LIPITOR TAB 80 MG PO SCH (08:29)
[2020-11-18] MEDS: ZESTRIL TAB 40 MG PO SCH (08:30)
[2020-11-18] MEDS: PULMICORT NEB TX 0.5 MG NEB SCH (09:00)
[2020-11-18] MEDS ORDERED: PERCOCET TAB 5/325 MG PO ONE (10:25)
[2020-11-18] MEDS ORDERED: PERCOCET TAB 5/325 MG PO NR (11:00)
[2020-11-18 12:35] VITALS: BP 117/56
== END 2020-11-18 14:25 | disposition home health service (06) | DRG 240 ==
LOC: MED/SURG → OBSVTOIN 20:43
PROVIDERS: ADMIT Surgery; ATTEND Surgery
DX: Z20.822 Contact with and (suspected) exposure to COVID-19; I25.10 Atherosclerotic heart disease of native coronary artery without angina pectoris; L97.512 Non-pressure chronic ulcer of other part of right foot with fat layer exposed; S92.001A Unspecified fracture of right calcaneus, initial encounter for closed fracture; Z95.0 Presence of cardiac pacemaker; E11.69 Type 2 diabetes mellitus with other specified complication; J44.9 Chronic obstructive pulmonary disease, unspecified; R26.89 Other abnormalities of gait and mobility; M86.171 Other acute osteomyelitis, right ankle and foot; E11.65 Type 2 diabetes mellitus with hyperglycemia; I70.201 Unspecified atherosclerosis of native arteries of extremities, right leg